=== PATIENT | male | born 1970 | race Caucasian/White ===

== ENCOUNTER 2018-04-29 21:49 | Emergency (ER) | payer MEDICARE, SELFPAY ==
[2018-04-29 21:51] VITALS: BP 160/95; PULSE 76; RESP 15; TEMP 36.9; O2SAT 100; BMI 35.6
--- NOTE | 2018-04-29 22:45 | CT_ITS ---
STUDY: CT ABDOMEN AND PELVIS WITHOUT CONTRAST REASON FOR EXAM: Male, 47 years old. LOW ABDOMEN PAIN,PAINFUL URINATION,ELEVATED BP HX:KIDNEY STONES RADIATION DOSAGE (If Supplied By Facility): CTDIvol = ( 19.85 ) mGy, DLP = ( 1111.15 ) mGycm TECHNIQUE: Transaxial images were obtained from the dome of the diaphragm to the symphysis pubis without oral contrast, and without intravenous contrast. Sagittal and coronal images were reconstructed. Individualized dose optimization techniques were used for this CT. COMPARISON: June 15, 2016 FINDINGS: The visualized lung bases are unremarkable. The visualized portions of the heart are within normal limits. There is decreased attenuation of the liver consistent with steatosis. Normal gallbladder and extrahepatic biliary system. Normal spleen. Normal pancreas. The liver is enlarged. This is consistent for Hepatomegaly. Liver is 23 cm in size. Normal bilateral adrenal glands. Normal right kidney. Nonobstructive inferior 4.7 mm stone of the left kidney. Moderate left hydronephrosis caused by left proximal 5 mm ureteral stone. Normal visualized stomach. Normal small intestine. Normal colon. The appendix is visualized and appears normal. Normal abdominal aorta. Normal inferior vena cava. Normal retroperitoneum. Normal urinary bladder. There are prostatic calcifications. There are bilateral inguinal hernias containing fat. There is no bowel involvement. There is no incarceration. There is no findings suggesting that this is causing a bowel obstruction. There is a small umbilical hernia containing fat. Normal osseous structures. CT/Abdomen/Pelvis without Cont IMPRESSION: Moderate left hydronephrosis caused by left proximal 5 mm ureteral stone. Fatty liver. Hepatomegaly Nonobstructive inferior 4.7 mm stone of the left kidney. Electronically Signed: Chico Hardy MD at 23:43 EDT , Service support ,
--- NOTE | 2018-04-29 22:49 | ED.DCSUM_ITS ---
- ER Visit Summary Date of Service: 04/29/18 Chief Complaint: Abdominal pain History of Present Illness: The patient is a 47 M presenting with abdominal pain. He states it started around 130pm today. He has a history of kidney stones and states this feels similar. Pain is in the suprapubic region. He denies back pain. He states he has had difficulty urinating today but has been able to urinate. He denies nausea or vomiting. Denies diarrhea. Denies fever. Denies other complaints. Physical Examination: Vitals are stable. Patient is afebrile. Alert no acute distress. HEENT exam is unremarkable. Neck is supple. Lungs are clear and equal bilaterally. Heart is regular rate and rhythm. Abdomen is soft suprapubic tenderness with no rebound or guarding Extremities are unremarkable. Skin is warm and dry. No focal neurologic deficit. Remainder of exam is unremarkable. Emergency Department Course and Treatment: Patient is given Toradol IV. CBC, chemistries unremarkable. Urinalysis shows 0-5 white blood cells, 5-[address] flank shows moderate left hydronephrosis caused by left proximal 5 mm ureteral stone. On reevaluation, patient states his pain is resolved. He is given a prescription for [place]. He is advised to follow-up with Dr. Villasenor. Advised return to ED for worsening complaints. Disposition: Discharge home Impression: Urolithiasis This note was generated with [employer] dictation software. It may contain incorrect words, spelling, and punctuation that were not noted in review of the chart prior to signing ED Disposition - Plan for ED Patient: Chief Complaint: Abd Pain Referrals: Yoan Ballard MD [Primary Care Provider] -
[2018-04-29 22:50] LABS: Bacteria 0 SEEN /hpf (None Seen); Mucous, Urine 0 SEEN /hpf (<or=2+); Squamous Epithelial Cells - UA 0 SEEN /hpf (0-5)
[2018-04-29] MEDS: Ketorolac 30 MG/ML Syringe IV (22:53)
[2018-04-29 23:01] LABS: Absolute Lymphocyte Count 1.78 X10^3/ul (0.83-4.51); Absolute Neutrophil Count 7.6 X10^3/uL (2.0-7.7); Basophil# 0.03 X10^3/uL; Basophil% 0.3 % (0-1); Eosinophil# 0.33 X10^3/uL; Eosinophils% 3.1 % (0-5); Hematocrit 42.4 % (40-54); Hemoglobin 14.5 g/dl (13.0-16.5); Lymphocyte # 1.78 X10^3/ul (4.0); Lymphocyte % 16.7 % (19-41); Mean Corp Hgb Conc 34.2 g/gl (32-36); Mean Corpuscular Hgb 29.5 pg (27.0-32.0); Mean Corpuscular Volume 86.4 fL (80-94); Mean Platelet Vol. 9.8 fl (6.2-12.0); Monocyte# 0.88 X10^3/uL; Monocyte% 8.3 % (0-10); Neutrophil # 7.62 X10^3/uL (2.7-7.7); Neutrophil % 71.4 % (47-70); Platelet Count 193 K/mm3 (150-450); RBC Distribution Width CV 13.6 % (11.6-14.6); RBC Distribution Width SD 42.9 fl (35.1-43.9); Red Blood Count 4.91 M/mm3 (4.6-6.2); White Blood Count 10.7 K/mm3 (4.4-11.0)
[2018-04-29 23:06] LABS: POSITIVE COUNT NO; POSITIVE DIFFERENTIAL NO; POSITIVE MORPHOLOGY NO
[2018-04-29 23:11] LABS: Color, Urine Yellow (Yellow); Glucose, Dipstick Normal (Normal); Ketone-Dipstick Negative (Negative); Leukocyte Esterase-Dipstick Negative /ul (Negative); Nitrite-Dipstick Negative (Negative); Occult Blood-Urine 250 /ul (Negative); Protein-Dipstick Negative (Negative); Urine Bilirubin Dipstick Negative (Negative); Urine Clarity Clear (Clear); Urine Urobilinogen Normal (Normal)
[2018-04-29 23:13] LABS: Red Blood Cells-Urine 5-10 SEEN /hpf (0-5); White Blood Cells 0-5 SEEN /hpf (0-5)
[2018-04-29 23:28] LABS: ALB/GLOB Ratio 1.1 RATIO (0.9-2.4); AST(SGOT) 26 U/L (15-37); Alanine Aminotransfer ALT/SGPT 44 U/L (16-61); Albumin, Serum 4.2 g/dL (3.2-5.0); Alkaline Phosphatase 77 U/L (45-117); Anion Gap 6 (5-15); BUN 15 mg/dL (7-18); BUN/Creat Ratio 12.5 RATIO (10-20); Chloride 104 mmol/L (98-107); EST Glomerular Filtration Rate 68 mL/min (>60); Est Glom Filt Rate - Afr Amer 83 mL/min (>60); Estimated Creatinine Clearance 80.18 ml/min; Globulin 3.8 g/dL (2.2-4.2); Glucose 97 mg/dL (74-106); Lipase 254 U/L (73-393); Potassium 3.9 mmol/L (3.5-5.1); Sodium Level 139 mmol/L (136-145)
--- NOTE | 2018-04-29 23:57 | ED.DEP ---
ED Disposition - Plan for ED Patient: Chief Complaint: Abd Pain Instructions: ED Stone Renal W Colic Prescriptions: Hydrocodone Bitart/Apap 5-325 [[place] 5MG-325MG] 1 tablet PO Q6H PRN PRN 3 Days #10 tablet PRN Reason: Pain Referrals: Yoan Ballard MD [Primary Care Provider] - Ozzie Villasenor MD [STAFF PHYSICIAN] -
--- NOTE | 2018-04-29 23:58 | DCINST.ED_ITS ---
ED Disposition - Plan for ED Patient: Chief Complaint: Abd Pain Instructions: ED Stone Renal W Colic Prescriptions: Hydrocodone Bitart/Apap 5-325 [[place] 5MG-325MG] 1 tablet PO Q6H PRN PRN 3 Days # 10 tablet PRN Reason: Pain Referrals: Yoan Ballard MD [Primary Care Provider] - Ozzie Villasenor MD [STAFF PHYSICIAN] -
[2018-04-30] MEDS: HYDROcodone Bitartrate/Apap 5/325 Tablet PO (00:09)
[2018-04-30 00:15] VITALS: BP 145/78; PULSE 75; RESP 19; O2SAT 99
== END 2018-04-30 00:17 | disposition home or self-care (01) ==
LOC: ED 23:59
PROVIDERS: Emergency Provider Emergency Medicine; Family Provider Family Medicine; PCP Family Medicine
DX: N13.2 Hydronephrosis with renal and ureteral calculous obstruction (principal); Z87.442 Personal history of urinary calculi
CPT/HCPCS: 74176; 80053; 81001; 83690; 85025; 96374; 99284; A4216

== ENCOUNTER 2018-05-02 21:02 | Emergency (ER) | payer MEDICARE, SELFPAY ==
[2018-05-02 21:03] VITALS: BP 183/100; PULSE 85; RESP 16; TEMP 37; O2SAT 95; BMI 36.2
[2018-05-02] MEDS: Morphine 4 MG/ML Syringe IV (21:50)
[2018-05-02] MEDS: 0.9% Normal Saline 1,000 ML 1000 ML IV (21:50)
[2018-05-02] MEDS: Ketorolac 30 MG/ML Syringe IV (21:51)
[2018-05-02] MEDS: Ondansetron 4 MG/2 ML Vial IV (21:51)
[2018-05-02 21:57] LABS: Absolute Lymphocyte Count 1.56 X10^3/ul (0.83-4.51); Absolute Neutrophil Count 8.7 X10^3/uL (2.0-7.7); Basophil# 0.02 X10^3/uL; Basophil% 0.2 % (0-1); Eosinophils% 1.7 % (0-5); Hematocrit 40.1 % (40-54); Hemoglobin 13.6 g/dl (13.0-16.5); Lymphocyte # 1.56 X10^3/ul (4.0); Lymphocyte % 13.3 % (19-41); Mean Corp Hgb Conc 33.9 g/gl (32-36); Mean Corpuscular Hgb 29.2 pg (27.0-32.0); Mean Corpuscular Volume 86.2 fL (80-94); Monocyte# 1.26 X10^3/uL; Monocyte% 10.7 % (0-10); Neutrophil # 8.68 X10^3/uL (2.7-7.7); Neutrophil % 73.9 % (47-70); Platelet Count 188 K/mm3 (150-450); RBC Distribution Width CV 13.4 % (11.6-14.6); RBC Distribution Width SD 42.1 fl (35.1-43.9); Red Blood Count 4.65 M/mm3 (4.6-6.2); White Blood Count 11.7 K/mm3 (4.4-11.0)
[2018-05-02 21:58] LABS: POSITIVE COUNT NO; POSITIVE DIFFERENTIAL NO; POSITIVE MORPHOLOGY NO
[2018-05-02 22:05] VITALS: BP 155/78; PULSE 91; RESP 17; O2SAT 95
[2018-05-02 22:10] LABS: Anion Gap 7 (5-15); BUN 16 mg/dL (7-18); BUN/Creat Ratio 8.9 RATIO (10-20); Calcium,Total 8.9 mg/dL (8.5-10.1); Chloride 102 mmol/L (98-107); EST Glomerular Filtration Rate 43 mL/min (>60); Est Glom Filt Rate - Afr Amer 52 mL/min (>60); Estimated Creatinine Clearance 53.45 ml/min; Glucose 101 mg/dL (74-106); Potassium 4.7 mmol/L (3.5-5.1); Sodium Level 132 mmol/L (136-145)
[2018-05-02 22:33] LABS: Bacteria 0 SEEN /hpf (None Seen); Mucous, Urine 0 SEEN /hpf (<or=2+); Red Blood Cells-Urine 0 SEEN /hpf (0-5); Squamous Epithelial Cells - UA 0 SEEN /hpf (0-5)
[2018-05-02 22:44] LABS: Color, Urine Yellow (Yellow); Glucose, Dipstick Normal (Normal); Ketone-Dipstick Negative (Negative); Leukocyte Esterase-Dipstick 25 /ul (Negative); Nitrite-Dipstick Negative (Negative); Occult Blood-Urine Negative /ul (Negative); Protein-Dipstick Negative (Negative); Urine Bilirubin Dipstick Negative (Negative); Urine Clarity Clear (Clear); Urine Urobilinogen Normal (Normal)
[2018-05-02 22:50] LABS: White Blood Cells 0-5 SEEN /hpf (0-5)
--- NOTE | 2018-05-02 23:20 | RAD_ITS ---
STUDY: X-RAY - ABDOMEN/PELVIS REASON FOR EXAM: Male, 47 years old. Kidney stone TECHNIQUE: Two AP supine views of the abdomen and pelvis. COMPARISON: CT abdomen and pelvis 04/29/2018 FINDINGS: The previously seen left inferior renal pole calculus and left proximal ureteral calculus are not sufficiently visualized in the expected location of the left kidney and proximal ureter. There is however 0.58 cm round density possible calcification/calculus at the level of L3 vertebral body which appears likely lateral to the expected location of the ureter. The kidneys are obscured. There is air distention of small bowel and colon. There is no demonstrated free abdominal air. Stable hepatomegaly. Normal soft tissue structures. Normal visualized osseous structures. RAD/Abdomen Single View IMPRESSION: Limited visualization of the kidneys. There is a calcification at the expected level of the previously seen calculus but more laterally than the expected ureter course. This still may represent the calculus without significant change in the ureter. The left inferior renal pole calculus on CT is obscured. Both kidneys are obscured. Probable intestinal ileus without obstruction. Electronically Signed: Velia Arevalo MD at 23:43 EDT , Service support ,
--- NOTE | 2018-05-02 23:37 | ED.VISSUMM ---
- ER Visit Summary Date of Service: 05/02/18 Chief Complaint: Abdominal pain History of Present Illness: The patient is a 47 M who presents with abdominal pain. It initially began 4 days ago. He was seen in the emergency department at that time and diagnosed with a kidney stone. He had a 5 mm proximal left ureteral calculus. He was discharged with hydrocodone. He states this was controlling his symptoms well until tonight. He last took a dose at about 2 PM. He states that his pain has become worse the last couple of hours. He reports nausea without vomiting. He reports urinary urgency but no dysuria frequency or hematuria. No diarrhea. No fever. Physical Examination: Afebrile vitals notable for blood pressure 183/100 otherwise normal Moist mucous membranes Patient in no apparent distress Heart regular rate and rhythm Lungs clear Abdomen soft nondistended he does have some bilateral lower abdominal tenderness no guarding no rebound No CVA tenderness Test Results: Labs notable for white blood cell count 11.7. Creatinine 1.8 which is increased from recent labs. Urinalysis does not show evidence of infection. On KUB I am unable to appreciate any obvious ureteral calculus. Emergency Department Course and Treatment: Patient was treated here with IV fluids Toradol morphine Zofran. He feels better on reevaluation. We discussed hospital admission. The patient does not want to be admitted. He will prefer to follow-up with urology as an outpatient. I do not believe this is unreasonable. He does understand return for new or worsening symptoms was instructed on specific signs and symptoms to monitor for. He was discharged home. Treatment Plan: [] Disposition: Discharge Impression: Ureteral calculus This note was generated with [employer] dictation software. It may contain incorrect words, spelling, and punctuation that were not noted in review of the chart prior to signing ED Disposition - Plan for ED Patient: Chief Complaint: Flank Pain Referrals: Yoan Ballard MD [Primary Care Provider] -
--- NOTE | 2018-05-02 23:44 | ED.DEP ---
ED Disposition - Plan for ED Patient: Chief Complaint: Flank Pain Instructions: ED Stone Renal W Colic Referrals: Yoan Ballard MD [Primary Care Provider] - Ozzie Villasenor MD [STAFF PHYSICIAN] -
[2018-05-02 23:50] VITALS: BP 148/82; PULSE 82; RESP 17; O2SAT 95
== END 2018-05-02 23:51 | disposition home or self-care (01) ==
LOC: ED 21:45
PROVIDERS: Emergency Provider Emergency Medicine; Family Provider Family Medicine; PCP Family Medicine
DX: N20.1 Calculus of ureter (principal)
CPT/HCPCS: 74018; 80048; 81001; 85025; 96361; 96374; 96375; 99285; J7030; A4216; J2405

== ENCOUNTER 2018-05-07 01:53 | Emergency (ER) | payer MEDICARE, SELFPAY ==
[2018-05-07 01:54] VITALS: BP 143/97; PULSE 75; RESP 18; TEMP 37; O2SAT 96; BMI 36.5
--- NOTE | 2018-05-07 02:36 | ED.DCSUM_ITS ---
- ER Visit Summary Date of Service: 05/07/18 Chief Complaint: Right knee swelling History of Present Illness: The patient is a 47 M nontraumatic right knee swelling for the past week. History of gout with similar flares. No fevers. Cannot get into his PCP for a week. Prescription for etodolac 400 mg twice daily for which he is out of. Requests drainage to relieve swelling. Physical Examination: General: Alert and oriented ?3, no acute distress HEENT: Normocephalic, atraumatic. Moist mucosa membranes Neck: supple, nontender. Cardiovascular: Regular rate and rhythm, no murmurs Respiratory: Normal breath sounds, symmetric, no distress Abdomen: Soft, nontender, nondistended Extremities: Nontender, pulses intact ?4. Right lower extremity: Suprapatellar swelling right knee. No erythema. Negative varus and valgus. Neuro: no focal neurological deficits. Test Results: [] Emergency Department Course and Treatment: Patient nontoxic, no clinical signs of septic joint. Patient requested drainage of effusion to help with swelling. Written consent obtained. Timeout performed. Lateral approach performed sterile conditions after preparation. Joint was accessed, however there is no fluid obtainable. Was able to inject 1 cc of 1% lidocaine into the joint to help with comfort. Cr wrap was provided. Case patient continue follow-up with his PCP. He was refill his prescription of etodolac. Motrin was given the ED. Treatment Plan: [] Disposition: Discharge Impression: Right knee effusion This note was generated with [employer] dictation software. It may contain incorrect words, spelling, and punctuation that were not noted in review of the chart prior to signing ED Disposition - Plan for ED Patient: Disposition: Home or Assisted Living Chief Complaint: Lower Extremity Injury Diagnosis: Swelling of right knee joint Instructions: Reducing Knee Pain and Swelling Prescriptions: Etodolac 400 mg PO BID PRN #60 tablet PRN Reason: Pain Referrals: Yoan Ballard MD [Primary Care Provider] - 3-5 Days
[2018-05-07] MEDS: Ibuprofen 600 MG Tablet PO (02:44)
[2018-05-07 04:14] VITALS: RESP 16
== END 2018-05-07 04:15 | disposition home or self-care (01) ==
PROVIDERS: Emergency Provider Emergency Medicine; Family Provider Family Medicine; PCP Family Medicine
DX: M25.461 Effusion, right knee (principal); M10.9 Gout, unspecified
CPT/HCPCS: 20610; 99283

== ENCOUNTER 2018-07-24 02:05 | Emergency (ER) | payer MEDICARE, SELFPAY ==
[2018-07-24 02:08] VITALS: BP 133/85; PULSE 86; RESP 16; TEMP 36.5; O2SAT 98; BMI 36.3
--- NOTE | 2018-07-24 02:23 | ED.VISSUMM ---
- ER Visit Summary Date of Service: 07/24/18 History of Present Illness: The patient is a 48 M for the last 3 days the patient had a flare of right knee aching and swelling. Has had this multiple times in the past. He thinks it might be gout. He has received injections in the knee which usually helps. He took some leftover hydrocodone which helped. He saw his family doctor recently and was given etodolac but it said does not seem to be helping on his own. He saw Sohail Broussard in the past for this but no definitive diagnosis. He had a effusion tapped last winter that showed no evidence of infection. This is similar to that. He was also seen and received an injection in his knee or the summer and it went away. Physical Examination: [] Vital signs reviewed General: Well-nourished well-developed Head: Normocephalic atraumatic Eyes: Pupils equal round and reactive to light extraocular movements intact ENT: TMs clear no hemotympanum no trauma Neck: Nontender full range of motion Cardiovascular: Regular rate rhythm no murmurs normal S1-S2 Respiratory: No distress clear to auscultation bilaterally chest nontender Abdomen: Soft nontender nondistended normal bowel sounds no masses Back: Nontender no CVA tenderness Extremities: The patient has a knee effusion with tenderness and warmth. No redness. Mild decreased range of motion secondary to pain. Skin: Normal color no trauma Neuro alert oriented cranial nerves II through XII intact normal strength sensation reflexes Test Results: [] Emergency Department Course and Treatment: [] It appears the patient has a recurrence of his knee effusion probably gout. He is Elvis on NSAID. He asked if I could inject it. Will be injected with Kenalog and lidocaine combination. His joint was washed with chlorhexidine and an injection was done without complication. Sterile technique done. Cr wrap was applied. He was given a hydrocodone and will continue short course of hydrocodone. He will follow-up as an outpatient. I do not feel he has a septic knee Treatment Plan: [] Disposition: [] Impression: [] Right knee effusion recurrent suspected gout This note was generated with [employer] dictation software. It may contain incorrect words, spelling, and punctuation that were not noted in review of the chart prior to signing ED Disposition - Plan for ED Patient: Disposition: Home or Assisted Living Chief Complaint: Lower Extremity Injury Instructions: ED Effusion Knee Prescriptions: Hydrocodone Bitart/Apap 5-325 [[place] 5MG-325MG] 1 - 2 tab PO Q6H PRN PRN 3 Days #10 tab PRN Reason: Pain Referrals: Brian Guidry MD [STAFF PHYSICIAN] - oYan Ballard MD [Primary Care Provider] -
--- NOTE | 2018-07-24 02:26 | ED.DCSUM_ITS ---
- ER Visit Summary Date of Service: 07/24/18 History of Present Illness: The patient is a 48 M for the last 3 days the patient had a flare of right knee aching and swelling. Has had this multiple times in the past. He thinks it might be gout. He has received injections in the knee which usually helps. He took some leftover hydrocodone which helped. He saw his family doctor recently and was given etodolac but it said does not seem to be helping on his own. He saw Sohail Broussard in the past for this but no definitive diagnosis. He had a effusion tapped last winter that showed no evidence of infection. This is similar to that. He was also seen and received an injection in his knee or the summer and it went away. Physical Examination: [] Vital signs reviewed General: Well-nourished well-developed Head: Normocephalic atraumatic Eyes: Pupils equal round and reactive to light extraocular movements intact ENT: TMs clear no hemotympanum no trauma Neck: Nontender full range of motion Cardiovascular: Regular rate rhythm no murmurs normal S1-S2 Respiratory: No distress clear to auscultation bilaterally chest nontender Abdomen: Soft nontender nondistended normal bowel sounds no masses Back: Nontender no CVA tenderness Extremities: The patient has a knee effusion with tenderness and warmth. No redness. Mild decreased range of motion secondary to pain. Skin: Normal color no trauma Neuro alert oriented cranial nerves II through XII intact normal strength sensation reflexes Test Results: [] Emergency Department Course and Treatment: [] It appears the patient has a recurrence of his knee effusion probably gout. He is Elvis on NSAID. He asked if I could inject it. Will be injected with Kenalog and lidocaine combination. His joint was washed with chlorhexidine and an injection was done without complication. Sterile technique done. Cr wrap was applied. He was given a hydrocodone and will continue short course of hydrocodone. He will follow-up as an outpatient. I do not feel he has a septic knee Treatment Plan: [] Disposition: [] Impression: [] Right knee effusion recurrent suspected gout This note was generated with [employer] dictation software. It may contain incorrect words, spelling, and punctuation that were not noted in review of the chart prior to signing ED Disposition - Plan for ED Patient: Disposition: Home or Assisted Living Chief Complaint: Lower Extremity Injury Instructions: ED Effusion Knee Prescriptions: Hydrocodone Bitart/Apap 5-325 [[place] 5MG-325MG] 1 - 2 tab PO Q6H PRN PRN 3 Days #10 tab PRN Reason: Pain Referrals: Brian Guidry MD [STAFF PHYSICIAN] - Yoan Ballard MD [Primary Care Provider] -
[2018-07-24] MEDS: HYDROcodone Bitartrate/Apap 5/325 Tablet PO (02:28)
--- NOTE | 2018-07-24 02:28 | DCINST.ED_ITS ---
ED Disposition - Plan for ED Patient: Disposition: Home or Assisted Living Chief Complaint: Lower Extremity Injury Instructions: ED Effusion Knee Prescriptions: Hydrocodone Bitart/Apap 5-325 [[place] 5MG-325MG] 1 - 2 tab PO Q6H PRN PRN 3 Days #10 tab PRN Reason: Pain Referrals: Yoan Ballard MD [Primary Care Provider] - Brian Guidry MD [STAFF PHYSICIAN] -
[2018-07-24] MEDS: Triamcinolone Acetonide 40 MG/ML Vial IU (02:44)
[2018-07-24 02:55] VITALS: RESP 16
== END 2018-07-24 02:55 | disposition home or self-care (01) ==
PROVIDERS: Emergency Provider Emergency Medicine; Family Provider Family Medicine; PCP Family Medicine
DX: M25.461 Effusion, right knee (principal); Z79.899 Other long term (current) drug therapy
CPT/HCPCS: 20610; 99282

== ENCOUNTER 2018-08-03 02:01 | Emergency (ER) | payer MEDICARE, SELFPAY ==
[2018-08-03 02:02] VITALS: BP 131/89; PULSE 63; RESP 20; TEMP 36.6; O2SAT 99; BMI 36.3
--- NOTE | 2018-08-03 02:16 | RAD_ITS ---
STUDY: X-RAY - RIGHT KNEE REASON FOR EXAM: Male, 48 years old. Knee pain. TECHNIQUE: 4 view(s) of the knee. COMPARISON: None. FINDINGS: Normal visualized distal femur. Normal visualized proximal tibia and fibula. Normal proximal tibiofibular articulation. There is mild degenerative arthrosis of the medial femorotibial compartment. Normal lateral femorotibial compartment. There is mild degenerative arthrosis of the patellofemoral articulation. There is a moderate volume joint effusion. The soft tissue structures are unremarkable. RAD/Knee 4 or More Views IMPRESSION: Degenerative arthrosis. Electronically Signed: Ricki Keys MD at 3:40 EDT Tel , Service support ,
--- NOTE | 2018-08-03 03:48 | ED.DCSUM_ITS ---
- ER Visit Summary Date of Service: 08/03/18 Chief Complaint: Right knee pain History of Present Illness: The patient is a 48 M who presents with right knee pain. This has been a chronic recurrent issue for him. He has previously had steroid injections. He also has a history of gout. He was seen here 10 days ago and had a steroid injection. He did have some temporary relief. He has also seen his primary care physician and had an orthopedic referral. He is scheduled to see them on August 11. He denies any fall trauma or injury. His pain is worse with ambulation. Physical Examination: Afebrile vitals are stable Heart regular rate and rhythm Lungs clear Abdomen soft Patient does have active full range of motion right knee there is some mild soft tissue swelling there is no appreciable effusion it is not erythematous or hot to the touch Test Results: Right knee x-ray shows degenerative changes Emergency Department Course and Treatment: Patient was given an Cr wrap and he will be given a prescription for short course of [place] for acute pain control until he can follow-up with orthopedics for further evaluation. Treatment Plan: [] Disposition: Discharge Impression: Right knee pain This note was generated with [employer] dictation software. It may contain incorrect words, spelling, and punctuation that were not noted in review of the chart prior to signing ED Disposition - Plan for ED Patient: Chief Complaint: Lower Extremity Injury Referrals: Yoan Ballard MD [Primary Care Provider] -
--- NOTE | 2018-08-03 03:48 | ED.DEP ---
ED Disposition - Plan for ED Patient: Chief Complaint: Lower Extremity Injury Instructions: ED Knee Pain UKO Prescriptions: Hydrocodone Bitart/Apap 5-325 [[place] 5MG-325MG] 1 tab PO Q6H PRN PRN 3 Days #12 tab PRN Reason: Pain Referrals: Yoan Ballard MD [Primary Care Provider] -
[2018-08-03 04:02] VITALS: BP 132/90; PULSE 63; RESP 16; O2SAT 98
[2018-08-03] MEDS: HYDROcodone Bitartrate/Apap 5/325 Tablet PO (04:09)
== END 2018-08-03 04:12 | disposition home or self-care (01) ==
LOC: ED 02:13
PROVIDERS: Emergency Provider Emergency Medicine; Family Provider Family Medicine; PCP Family Medicine
DX: M25.561 Pain in right knee (principal); M10.9 Gout, unspecified; Z79.1 Long term (current) use of non-steroidal anti-inflammatories (NSAID)
CPT/HCPCS: 73564; 99282

== ENCOUNTER 2019-05-06 02:10 | Emergency (ER) | payer MEDICARE, SELFPAY ==
[2019-05-06 02:12] VITALS: BP 150/98; PULSE 68; RESP 16; TEMP 37; O2SAT 96; BMI 37.0
--- NOTE | 2019-05-06 02:24 | ED.VIS.GEN ---
History of Present Illness Chief Complaint: Other, Pain/Inj Informant: Patient Narrative: Stated he lifting something heavy approximately 4 hours ago while helping someone move. It was a bed mattress. He felt some pain in his left elbow is noted some swelling in his bursa sac. He also has some soreness in his right lower back. He uses allopurinol daily for gout. No fevers or chills. No other symptoms. Symptoms are worsened by movement. Current severity is mild to moderate. Past Medical History - Allergies and Home Meds Allergies/Adverse Reactions: Allergies No Known Allergies Allergy (Verified 05/06/19 02:16) Primary Care Physician: Yoan Ballard MD [Primary Care Provider] - Prior records reviewed: Yes Past Medical History: - - Gout Surgical History: noncontributory Smoking Status: Never smoker Alcohol: None Drugs: None Review of Systems General: Denies: Chills, Fever, Sweats Eyes: Denies: Visual changes - bilaterally, Diplopia ENT: Denies: Rhinorrhea, Sore throat Cardiovascular: Denies: Chest pain, Palpitations Respiratory: Denies: Dyspnea, Cough, Dyspnea on exertion Gastrointestinal: Denies: Abdominal pain, Nausea, Vomiting, Diarrhea, Melena, Hematochezia Genitourinary: Denies: Dysuria, Hematuria, Frequency Musculoskeletal: Reports: Back pain, Extremity Pain Skin: Denies: Rash, Wounds Neurological: Denies: Headache, Weakness, Numbness Physical Exam Vital Signs/Narrative: Vital Signs Temp Pulse Resp BP Pulse Ox 05/06/19 02:12 98.6 F 68 16 150/98 H 96 General: Well nourished, Well developed, No Acute Distress Head: Normocephalic, Atraumatic Eyes: Perrl, EOMI ENT: Moist mucous membranes, No rhinorrhea Neck: Supple, Nontender Cardiovascular: Regular rate, Regular rhythm, No murmurs Respiratory: No distress, CTA bilaterally, Chest nontender Abdomen: Soft, Nontender, Nondistended, Normal bowel sounds Back: Normal Inspection, - - Tenderness right lower lumbar paraspinals with mild decreased range of motion secondary to pain. Negative for: Nontender Extremities: Tenderness - Right posterior olecranon. Mild bursitis swelling noted. No significant redness or warmth.. Negative for: Nontender, No edema Skin: Normal color, No rash Neurological: Alert, Oriented x3, Cranial nerves II-XII grossly intact, Normal Strength, Normal Sensation Psychological: Normal affect, Normal Mood Diagnostic/Tx/Re-eval - Medical Decision Making This time I feel the patient has a back strain on his right lower back. Will be given meloxicam for home. He will use this at home and rest and ice. His left elbow has a mild bursitis. This was injected with 80 mg of Kenalog. This was done under sterile technique. Wound was washed with chlorhexidine. A 21-gauge needle was instilled to the bursa with a steroid. Cr wrap was placed. He will follow-up as an outpatient. No complications noted. ED Disposition - Plan for ED Patient: Disposition: [facility] Unit Diagnosis: Traumatic bursitis, Low back strain Instructions: What Is Bursitis?, BACK PAIN (Acute or Chronic) Prescriptions: Meloxicam 15 mg PO DAILY #14 tab Prescription Printed Referrals: Yoan Ballard MD [Primary Care Provider] -
[2019-05-06] MEDS: Ibuprofen 600 MG Tablet PO (02:40)
[2019-05-06] MEDS: Triamcinolone Acetonide 40 MG/ML Vial 80 MG IU (02:40)
== END 2019-05-06 02:43 | disposition home or self-care (01) ==
LOC: ED 02:32
PROVIDERS: Emergency Provider Emergency Medicine; Family Provider Family Medicine; PCP Family Medicine
DX: M70.88 Other soft tissue disorders related to use, overuse and pressure other site (principal); S39.012A Strain of muscle, fascia and tendon of lower back, initial encounter; M10.9 Gout, unspecified; Z79.899 Other long term (current) drug therapy; X50.0XXA Overexertion from strenuous movement or load, initial encounter; Y93.89 Activity, other specified; Y92.009 Unspecified place in unspecified non-institutional (private) residence as the place of occurrence of the external cause; Y99.8 Other external cause status
CPT/HCPCS: 20605; 20610; 99283

== ENCOUNTER 2019-05-25 06:58 | Emergency (ER) | payer MEDICARE, SELFPAY ==
[2019-05-25 06:58] VITALS: BP 136/91; PULSE 71; RESP 16; TEMP 36.6; O2SAT 97; BMI 35.5
--- NOTE | 2019-05-25 07:12 | RAD_ITS ---
STUDY: X-RAY - LEFT ELBOW REASON FOR EXAM: Male, 49 years old. Injury due to lifting. TECHNIQUE: 3 view(s) of the elbow. COMPARISON: None. FINDINGS: Normal visualized humerus, radius and ulna. There is degenerative arthrosis of the radiocapitellar and ulnotrochlear articulations. Tiny linear metallic density is seen in the soft tissues overlying the medial epicondyle of the distal humerus posteriorly. Posterior soft tissue swelling. RAD/Elbow min 3 Views IMPRESSION: Mild degenerative changes. Soft tissue swelling. Tiny metallic foreign body seen in the soft tissues overlying the posterior medial epicondyle of the distal humerus. Electronically Signed: Cory Tracey, at 7:55 EDT , Service support ,
--- NOTE | 2019-05-25 07:14 | ED.VIS.GEN ---
History of Present Illness Chief Complaint: Upper Extremity Injury Informant: Patient Onset: Weeks - 3 Context: Onset with activity Current Severity: Moderate Narrative: Patient presents with left elbow pain that started 3 weeks ago. He was seen in the emergency department he was given an intrabursal [place]al[place] injection and had significant improvement, however his pain is back today. He has no fever chills cough congestion he tells me that the pain is medial on his left elbow worse with extension. He has no new injury. He has no fever chills or rash. Pain is achy mild to moderate. Past Medical History - Allergies and Home Meds Allergies/Adverse Reactions: Allergies No Known Allergies Allergy (Verified 05/25/19 07:00) Primary Care Physician: John Jenkins DO [STAFF PHYSICIAN] - Past Medical History: - - Hearing and speech impediment, otherwise relatively healthy male Surgical History: noncontributory Smoking Status: Never smoker Review of Systems General: Denies: Fever Cardiovascular: Denies: Chest pain Respiratory: Reports: Dyspnea Musculoskeletal: Reports: Arthralgias Skin: Denies: Rash Neurological: Denies: Weakness, Parasthesia Hematologic: Denies: Easy bruising Physical Exam Vital Signs/Narrative: Vital Signs Temp Pulse Resp BP Pulse Ox 05/25/19 06:58 97.8 F 71 16 136/91 H 97 General: Well nourished, Well developed Neck: Nontender Cardiovascular: Regular rate Respiratory: No distress Extremities: - - There is medial elbow tenderness mostly in the medial epicondyle region. There is no olecranon bursitis at this time. There is no erythema or calor. No signs of infection there is pain with pronation supination flexion and extension. Skin: Normal color, No rash Neurological: Normal Strength, Normal Sensation Diagnostic/Tx/Re-eval - Medical Decision Making X-ray elbow was done this is unremarkable except for a very small metallic foreign body this could or could not cause his pain, at this time there is no signs of infection. I will place the patient on analgesics, I will refer to orthopedics for further follow-up and treatment. ED Disposition - Plan for ED Patient: Disposition: Home or Assisted Living Diagnosis: Sprain of elbow, left Instructions: Sprain Elbow Prescriptions: Hydrocodone Bitart/Apap 5-325 [[place] 5MG-325MG] 1 tab PO Q4H PRN PRN 2 Days #10 tab PRN Reason: Pain Prescription Printed Referrals: John Jenkins DO [STAFF PHYSICIAN] - Additional Instructions: There is a very small foreign body in the elbow. Follow-up with orthopedics to make sure that that is not what is causing your pain.
== END 2019-05-25 08:13 | disposition home or self-care (01) ==
PROVIDERS: Emergency Provider Emergency Medicine; Family Provider Family Medicine; PCP Family Medicine
DX: S53.4 Sprain of elbow (principal); X58.XXXD Exposure to other specified factors, subsequent encounter
CPT/HCPCS: 73080; 99282

== ENCOUNTER 2019-06-25 03:35 | Emergency (ER) | payer MEDICARE, SELFPAY ==
[2019-06-25 03:36] VITALS: BP 129/85; PULSE 62; RESP 16; TEMP 36.8; O2SAT 98; BMI 35.6
--- NOTE | 2019-06-25 03:46 | ED.DCSUM_ITS ---
History of Present Illness Chief Complaint: Lower Extremity Injury Narrative: Patient is a 49-year-old male who presents with right knee and ankle pain. This is been going on for 4 weeks. He does have a history of prior similar symptoms and gout. He is on allopurinol. His primary care physician recently increased the dose but he continues to have symptoms. No fevers nausea vomiting. No history of any trauma or injury. Past Medical History - Allergies and Home Meds Allergies/Adverse Reactions: Allergies No Known Allergies Allergy (Verified 06/25/19 03:36) Primary Care Physician: Yoan Ballard MD [Primary Care Provider] - Past Medical History: - - Gout Surgical History: noncontributory Smoking Status: Never smoker Review of Systems All systems negative except as indicated Physical Exam Vital Signs/Narrative: Vital Signs Temp Pulse Resp BP Pulse Ox 06/25/19 03:36 98.3 F 62 16 129/85 H 98 General: Well nourished Head: Normocephalic Eyes: EOMI ENT: Moist mucous membranes Cardiovascular: Regular rate Respiratory: No distress Extremities: - - Right knee effusion but active full range of motion no pain with short arc range of motion it is not erythematous or hot to the touch active full range of motion of the right ankle as well normal sensation to light touch brisk capillary refill Skin: Normal color Neurological: Alert Psychological: Normal affect Diagnostic/Tx/Re-eval - Medical Decision Making Patient was given a [place] here and will also be started on prednisone. He was given prescriptions for the same. He was advised to follow-up with his primary care physician and was discharged home. ED Disposition - Plan for ED Patient: Disposition: Home or Assisted Living Diagnosis: Gout Instructions: What Is Gout? Prescriptions: Hydrocodone Bitart/Apap 5-325 [[place] 5MG-325MG] 1 tab PO Q6H PRN PRN 3 Days #10 tab PRN Reason: Pain Prescription Printed predniSONE tablet 60 mg PO DAILY #12 tab Prescription Printed Referrals: Yoan Ballard MD [Primary Care Provider] -
[2019-06-25] MEDS: HYDROcodone Bitartrate/Apap 5/325 Tablet PO (03:50)
[2019-06-25] MEDS: predniSONE 20 MG Tablet 60 MG PO (03:51)
== END 2019-06-25 04:19 | disposition home or self-care (01) ==
LOC: ED 03:56
PROVIDERS: Emergency Provider Emergency Medicine; Family Provider Family Medicine; PCP Family Medicine
DX: M10.9 Gout, unspecified (principal); Z79.899 Other long term (current) drug therapy
CPT/HCPCS: 99283

== ENCOUNTER 2020-06-05 03:33 | Emergency (ER) | payer MEDICARE, SELFPAY ==
[2020-06-05 03:34] VITALS: BP 117/76; PULSE 67; RESP 18; TEMP 36.3; O2SAT 97; BMI 36.3
--- NOTE | 2020-06-05 04:34 | ED.VIS.GEN ---
History of Present Illness Chief Complaint: Edema Informant: Patient Onset: Days Context: Gradual Onset Timing: Continuous Narrative: Patient is a 50-year-old male with history of deafness and gout presenting with a gouty flare. Patient states he ate shrimp 3 days ago which seemed to exacerbate his gout symptoms. He is having pain, redness and warmth of his left foot and his left elbow. He is on allopurinol is continued to take it. He states he had blood work with his primary care doctor earlier this week and it was normal. He denies any history of diabetes. He states he could not sleep because of the pain which is why he came to the emergency room. Denies any other complaints at this time. Denies any trauma or injury. Prior similar symptoms: Yes - gout Past Medical History - Allergies and Home Meds Allergies/Adverse Reactions: Allergies No Known Allergies Allergy (Verified 06/05/20 03:41) Primary Care Physician: Yoan Ballard MD [Primary Care Provider] - Past Medical History: - - Gout Surgical History: noncontributory Smoking Status: Never smoker Review of Systems General: Denies: Chills, Fever, Sweats Eyes: Denies: Visual changes - bilaterally, Diplopia ENT: Denies: Rhinorrhea, Sore throat Cardiovascular: Denies: Chest pain, Palpitations Respiratory: Denies: Dyspnea, Cough, Dyspnea on exertion Gastrointestinal: Denies: Abdominal pain, Nausea, Vomiting, Diarrhea, Melena, Hematochezia Genitourinary: Denies: Dysuria, Hematuria, Frequency Musculoskeletal: Reports: Swelling, Extremity Pain. Denies: Back pain Skin: Denies: Rash, Wounds Neurological: Denies: Headache, Weakness, Numbness Physical Exam Vital Signs/Narrative: Vital Signs Temp Pulse Resp BP Pulse Ox 06/05/20 03:34 97.3 F L 67 18 117/76 97 Inital Vital Signs reviewed: Yes General: Well nourished, Well developed, No Acute Distress Head: Normocephalic, Atraumatic Eyes: Perrl, EOMI ENT: Moist mucous membranes, No rhinorrhea Neck: Supple, Nontender Cardiovascular: Regular rate, Regular rhythm, No murmurs Respiratory: No distress, CTA bilaterally, Chest nontender Abdomen: Soft, Nontender, Nondistended, Normal bowel sounds Back: Nontender, Normal Inspection Extremities: - - Normal range of motion of the joints throughout. No obvious deformity. Mild warmth and tenderness palpation of the left elbow. No obvious bursitis on exam. No obvious joint effusion present. Normal left ankle. On the left foot patient has erythema and warmth over the lateral midfoot with tenderness palpation some mild edema. No lymphangitic streaking present. Normal metatarsal phalangeal joints.. Negative for: Calf Tenderness Skin: No rash, - - Erythema over the left lateral foot, no cellulitic changes or findings consistent with an abscess Neurological: Alert, Oriented x3, Cranial nerves II-XII grossly intact, Normal Strength, Normal Sensation Psychological: Normal affect, Normal Mood Diagnostic/Tx/Re-eval - Medical Decision Making Patient is evaluated for acute gouty flare. He appears nontoxic in no acute distress. This is consistent with his prior gouty flares. He will be treated with 1.2 mg of colchicine in the ER, prednisone and prescription for [place] as the patient drove here. He also take Motrin as needed at home. He will be given a burst of steroids. He will follow-up with his primary care doctor later this week as needed. He is given return precautions. At this time I do not think patient has a septic joint or an acute infection. I do not think imaging or blood work is indicated. ED Disposition - Plan for ED Patient: Disposition: Home or Assisted Living Diagnosis: Gout flare, Left elbow pain, Left foot pain Instructions: ED ARTHRITIS Gout Prescriptions: Prednisone [Deltasone] 40 mg PO DAILY #8 tab Prescription Printed Hydrocodone Bitart/Apap 5-325 [[place] 5MG-325MG] 1 tab PO Q6H PRN PRN 3 Days #12 tab PRN Reason: Pain Prescription Printed Referrals: Yoan Ballard MD [Primary Care Provider] - Additional Instructions: Please follow-up with your primary care doctor later this week or early next week for recheck. Return with any worsening symptoms especially if you develop a fever.
[2020-06-05] MEDS: predniSONE 20 MG Tablet 60 MG PO (04:46)
[2020-06-05 04:56] VITALS: PULSE 72; RESP 18
== END 2020-06-05 04:57 | disposition home or self-care (01) ==
PROVIDERS: Emergency Provider Emergency Medicine; PCP Family Medicine
DX: M10.9 Gout, unspecified (principal); M79.672 Pain in left foot; M25.522 Pain in left elbow
CPT/HCPCS: 99282

== ENCOUNTER 2020-08-26 12:44 | Observation (INO) | payer MEDICARE, SELFPAY ==
[2020-08-26] VITALS (11 sets, daily range): BP systolic 111–138; BP diastolic 69–92; PULSE 55–73; RESP 12–18; TEMP 36.2–37.1; O2SAT 96–98; BMI 35.7; BMI 35.5
--- NOTE | 2020-08-26 13:02 | RAD_ITS ---
STUDY: X-RAY CHEST REASON FOR EXAM: Male, 50 years old. Chest pain x3 days. TECHNIQUE: Single AP portable view of the chest. COMPARISON: None. FINDINGS: EKG electrodes are seen. The lungs are clear and expanded. There is no demonstrated pleural abnormality. Normal size heart. Normal mediastinum and satish. Normal visualized pulmonary arteries. There is atherosclerotic tortuosity of the aortic arch and descending thoracic aorta. There are diffuse degenerative changes of the visualized thoracic spine. Normal visualized ribs, clavicles, and shoulders. There is no demonstrated abnormality of the visualized soft tissue structures of the upper abdomen. RAD/Chest 1 View (Portable) IMPRESSION: No acute abnormality is seen. Electronically Signed: Cory Tracey, at 13:25 EST , Service support ,
--- NOTE | 2020-08-26 13:02 | EKG12_ITS ---
Test Reason : CP Blood Pressure : / mmHG Vent. Rate : 067 BPM Atrial Rate : 067 BPM P-R Int : 170 ms QRS Dur : 088 ms QT Int : 392 ms P-R-T Axes : 025 -05 025 degrees QTc Int : 414 ms Sinus rhythm with occasional Premature ventricular complexes Otherwise normal ECG Confirmed by IRINA DECKER, KRISTINE ([id number]), commissioning editor RAMONITA GARCIA ([id number]) on 08/27/2020 1:05:40 PM Referred By: THOM Confirmed By:KRISTINE AREVALO MD
--- NOTE | 2020-08-26 13:03 | ED.RN ---
NO OLD EKGS
--- NOTE | 2020-08-26 13:03 | ED.VIS.GEN ---
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 He denies any constitutional symptoms of fever, chills or night sweats. He denies weight loss or weight gain. He denies history of VTE, leg pain or leg swelling. He has no risk factors for VTE. He denies history of peptic ulcers, GERD, esophagitis or hiatal hernia. He denies intolerance to food. He denies hematemesis, melena or hematochezia. Patient has not taken anything for the pain today. He presents because it has persisted longer than episode on Wednesday. He is a non-smoker. He has no cardiac risk factors. There is no family history cardiac disease per patient. Prior similar symptoms: No Recent Illness/Hospitalization: No - Past Medical History (1) Deaf-mutism Status: Inactive (2) Deaf Status: Acute Past Medical History - Allergies and Home Meds Allergies/Adverse Reactions: Allergies No Known Allergies Allergy (Verified 08/26/20 12:45) Prior records reviewed: Yes - Gout Surgical History: noncontributory Lives: Alone Smoking Status: Never smoker Alcohol: None Drugs: None Review of Systems General: Denies: Chills, Fever, Sweats Eyes: Denies: Visual changes - bilaterally, Blurred Vision - bilaterally ENT: Denies: Rhinorrhea, Sore throat Cardiovascular: Reports: Chest pain. Denies: Palpitations, Heart racing, -, - Respiratory: Reports: Dyspnea. Denies: Cough, Sputum, Dyspnea on exertion, Orthopnea, Paroxysmal nocturnal dyspnea, -, - Gastrointestinal: Denies: Abdominal pain, Nausea, Vomiting, Diarrhea, Melena, Hematochezia Genitourinary: Denies: Dysuria, Hematuria, Frequency Musculoskeletal: Denies: Myalgias, Arthralgias, Neck pain, Back pain, Swelling, Extremity Pain Skin: Denies: Rash, Wounds Neurological: Denies: Headache, Weakness, Numbness Endocrine: Denies: Polyuria, Polydipsia Hematologic: Denies: Easy bruising, Easy bleeding Physical Exam Vital Signs/Narrative: Vital Signs Temp Pulse Resp BP Pulse Ox 08/26/20 12:45 97.2 F L 73 17 137/90 H 96 Inital Vital Signs reviewed: Yes General: Well nourished, Well developed, No Acute Distress Head: Normocephalic, Atraumatic Eyes: Perrl, EOMI. Negative for: Pale conjunctiva, Scleral icterus ENT: Moist mucous membranes, No rhinorrhea Neck: Supple, Nontender, No lymphadenopathy, No JVD Cardiovascular: Regular rate, Regular rhythm, No murmurs, Normal S1, Normal S2 Respiratory: No distress, CTA bilaterally, Chest nontender Abdomen: Soft, Nontender, Nondistended, Normal bowel sounds Back: Nontender, Normal Inspection Extremities: Nontender, No edema, - - There is no asymmetry, swelling, discoloration, leg vein distention, palpable cords or tenderness along the distribution of the deep venous system. Skin: Normal color, No rash Neurological: Alert, Oriented x3, Cranial nerves II-XII grossly intact, Normal Strength, Normal Sensation Psychological: Normal affect, Normal Mood Diagnostic/Tx/Re-eval - EKG Initial EKG Interpretation: Sinus Rhythm - Sinus rhythm with occasional premature ventricular beat and a ventricular rate of 67. MO interval 270 ms. QRS duration 88 ms. QT duration 392 ms. [place] is normal. Other than the premature beats the EKG is normal - Medical Decision Making Patient presents with left-sided chest pain that came on with activity on Wednesday and today. Will obtain EKG to rule out STEMI. Work-up was undertaken to rule out cardiac etiology versus other. He was treated with aspirin and since he is still complaining of discomfort in his chest with shortness of breath and radiation to left arm he received nitroglycerin. ED Disposition - Plan for ED Patient: Disposition: Acute Care [facility] Diagnosis: Chest pain in adult, Deaf
[2020-08-26 13:12] LABS: Absolute Lymphocyte Count 1.82 X10^3/uL (0.83-4.51); Absolute Neutrophil Count 4.3 X10^3/uL (2.0-7.7); Basophil# 0.05 X10^3/uL; Basophil% 0.7 % (0-1); Eosinophil# 0.39 X10^3/uL; Eosinophils% 5.3 % (0-5); Hematocrit 42.8 % (40-54); Hemoglobin 14.2 g/dL (13.0-16.5); Lymphocyte # 1.82 X10^3/ul (4.0); Lymphocyte % 24.8 % (19-41); Mean Corp Hgb Conc 33.2 g/dL (32-36); Mean Corpuscular Hgb 29.3 pg (27.0-32.0); Mean Corpuscular Volume 88.4 fL (80-94); Mean Platelet Vol. 9.6 fl (6.2-12.0); Monocyte# 0.75 X10^3/uL; Monocyte% 10.2 % (0-10); NRBC Flagged by Analyzer 0 % (0-5); Neutrophil # 4.31 X10^3/uL (2.7-7.7); Neutrophil % 58.6 % (47-70); Platelet Count 247 K/mm3 (150-450); RBC Distribution Width CV 13.7 % (11.6-14.6); RBC Distribution Width SD 44.5 fl (35.1-43.9); Red Blood Count 4.84 M/mm3 (4.6-6.2); White Blood Count 7.4 K/mm3 (4.4-11.0)
[2020-08-26] MEDS: Aspirin 81 MG TAB.CHEW 324 MG PO (13:27)
[2020-08-26] MEDS: Nitroglycerin SL (ED/IMG/CATH) 0.4 MG TABLET SUBLINGUAL ×3 (13:29→14:18)
[2020-08-26 13:30] LABS: Anion Gap 8 (5-15); BUN 17 mg/dL (7-18); BUN/Creat Ratio 14.9 RATIO (10-20); Calcium,Total 9.1 mg/dL (8.5-10.1); Chloride 107 mmol/L (98-107); Creatinine, Serum 1.14 mg/dL (0.70-1.30); EST Glomerular Filtration Rate 72 mL/min (>60); Est Glom Filt Rate - Afr Amer 87 mL/min (>60); Estimated Creatinine Clearance 81.65 ml/min; Glucose 103 mg/dL (74-106); Potassium 3.8 mmol/L (3.5-5.1); Sodium Level 141 mmol/L (136-145)
--- NOTE | 2020-08-26 14:27 | HP.PCM_ITS ---
History of Present Illness Date of Admission: 08/26/20 Chief Complaint: chest pain The patient is a 50 year old M with a PMH as outlined, including being deaf. He was admitted with a complaint of chest pain which started one day prior to admission, and was exacerbated by exertion and relieved by rest. Chest pain recurred today. He had no other systemic symptoms and denied any shortness of breath, lightheadedness or dizziness, palpitations, 0 vomiting. Review of systems otherwise negative. In the ED, vitals showed temperature of 91.2 with blood pressure of 111/69, pulse rate of 60 and respiratory rate of 18. Chest x- ray showed no acute cardiopulmonary process. Chemistry showed initial troponin of less than 0.015 but was otherwise unremarkable. CBC was also unremarkable. EKG showed no acute ST changes. He has been admitted to manage for chest pain rule out ACS. [] Past Medical History Allergies No Known Allergies Allergy (Verified 08/26/20 12:45) Home Medications: Ambulatory Orders Medication Instructions Recorded Allopurinol 300 mg PO DAILY 08/26/20 Surgical History: noncontributory Lives: Alone Smoking Status: Never smoker Alcohol: None Drugs: None - *Family History Maternal History Items: No pertinent history Paternal History Items: No pertinent history Review of Systems Constitutional: Denies: Chills, Fever, Malaise, Weight Change HEENT: Denies: Head Aches, Sinus Congestion, Sinus Drainage Cardiovascular: Reports: Chest Pain, Chest Pressure, Chest Tightness, Palpitations. Denies: Edema, Heaviness, Light Headedness, Orthopnea, Paroxysmal Noc. Dyspnea Respiratory: Denies: Cough, Shortness of Breath, Shortness of breath at rest, Shortness of breath upon exertion, Sputum production Gastrointestinal: Denies: Abdominal Pain, Nausea, Vomiting Genitourinary: Denies: Dysuria Musculoskeletal: Denies: Joint Pain, Joint Tenderness Skin: Denies: Rash, Wounds Neurological: Denies: Numbness, Tingling, Focal weakness Psychiatric: Denies: Anxiety, Depression, Homicidal Ideations, Suicidal Ideations Hematologic/ Lymphatic: Denies: Easy Bruising, Easy Bleeding VTE Information - Inpt Only VTE Present on Admission: No VTE Pharm Prophylaxis ordered?: Yes Patient Problems: Active and Suspected Problems Deaf (Acute) Chest pain in adult (Acute) - Physical Exam Vitals/I&O's: Vital Signs Temp Pulse Resp BP Pulse Ox 97.2 F L 60 18 111/69 98 08/26/20 12:45 08/26/20 14:18 08/26/20 14:00 08/26/20 14:18 08/26/20 14:00 Oxygen Delivery Method Room Air Weight: 256 lb 2.834 oz Body Mass Index (BMI) 35.7 General: Alert, Oriented x3, Cooperative, No apparent distress HEENT: Atraumatic, PERRLA, EOMI, Normocephalic Oral: Dry Mucosa Neck: Supple, No JVD, Negative Carotid Bruits Lungs: Clear to auscultation, Normal air movement, No rhonchi, No wheeze, No rales Cardiovascular: Regular rate, Regular Rhythm, Normal S1, Normal S2, No murmurs Abdomen: Bowel Sounds Present, Soft, Non Tender, Non-Distended, No Hepato- splenomegaly Extremities: No clubbing, No cyanosis, No edema, Capillary Refill Less than 3 Seconds Skin: No rashes, No breakdown Musculoskeletal: No Tenderness to Palpation of Joints or Extremities Lymphatic: No Cervical, Supraclavicular, or Inguinal Adenopathy Neurological: Cranial nerves II-XII grossly intact, Neuro grossly intact, Motor Exam 5/5 strength throughout Psych/Mental Status: Normal Affect, Appropriate, Alert and oriented to time, place, person, mood and affect Laboratory Results 08/26/20 13:00: WBC 7.4, RBC 4.84, Hgb 14.2, Hct 42.8, MCV 88.4, MCH 29.3, MCHC 33.2, RDW Std Deviation 44.5 H, RDW Coeff of Aileen 13.7, Plt Count 247, MPV 9.6, Immature Gran % (Auto) 0.400, Neut % (Auto) 58.6, Lymph % (Auto) 24.8, [place] % (Auto) 10.2 H, Eos % (Auto) 5.3 H, Baso % (Auto) 0.7, Absolute Neuts (auto) 4.3, Absolute Lymphs (auto) 1.82, Nucleated RBC % 0 08/26/20 13:00: Sodium 141, Potassium 3.8, Chloride 107, Carbon Dioxide 26.0, Anion Gap 8, BUN 17, Creatinine 1.14, Estim Creat Clear Calc 81.65, Est GFR (MDRD) Af Amer 87, Est GFR (MDRD) Non-Af 72, BUN/Creatinine Ratio 14.9, Glucose 103, Calcium 9.1, Troponin I < 0.015 Diagnostic Data Chest X-Ray 08/26/20 13:02 IMPRESSION: No acute abnormality is seen. Electronically Signed: Cory Tracey, at 13:25 EST , Service support , Assessment/Plan All Active Problems Deaf (Acute) Chest pain in adult (Acute) 50-year-old male admitted with a complaint of chest pain. #Chest pain to r/o ACS * Admit to PCU with telemetry. * Cycle troponins x3 * Sublingual nitroglycerin as needed. P.o. aspirin 81 mg daily. * For stress test tomorrow if troponins are negative. * #History of deafness: Stable #gout: on allopurinol DVT prophylaxis: Lovenox OBSV E&M: [id number] Initial observation care L2
--- NOTE | 2020-08-26 14:29 | NURSING ---
DR JUDITH HERRERA
--- NOTE | 2020-08-26 14:38 | NURSING ---
PRATIBHA WONG CP WITH ACTIVITY
--- NOTE | 2020-08-26 16:21 | EKG12_ITS ---
Test Reason : CP Blood Pressure : / mmHG Vent. Rate : 068 BPM Atrial Rate : 068 BPM P-R Int : 172 ms QRS Dur : 084 ms QT Int : 398 ms P-R-T Axes : 043 017 039 degrees QTc Int : 423 ms Normal sinus rhythm Normal ECG Confirmed by IRINA DECKER, KRISTINE ([id number]), state editor MARIA EUGENIA NEWMAN ([id number]) on 08/28/2020 1:58:04 PM Referred By: TEJAL Confirmed By:KRISTINE AREVALO MD
[2020-08-26] MEDS: 0.9% Saline Lock 10 ML Syringe IV (16:31)
[2020-08-26] MEDS: Morphine 2 MG/ML Syringe IV (16:31)
[2020-08-27 02:09] VITALS: BP 117/78; PULSE 62; RESP 18; TEMP 36.8; O2SAT 94
--- NOTE | 2020-08-27 02:13 | EKG12_ITS ---
Test Reason : Blood Pressure : / mmHG Vent. Rate : 060 BPM Atrial Rate : 060 BPM P-R Int : 176 ms QRS Dur : 090 ms QT Int : 412 ms P-R-T Axes : 002 -01 028 degrees QTc Int : 412 ms Normal sinus rhythm Normal ECG Confirmed by IRINA DECKER, KRISTINE ([id number]), editorial manager MARIA EUGENIA NEWMAN ([id number]) on 08/28/2020 1:58:18 PM Referred By: TEJA Confirmed By:KRISTINE AREVALO MD
[2020-08-27] MEDS: 0.9% Saline Lock 10 ML Syringe IV (02:14)
[2020-08-27] MEDS: Morphine 2 MG/ML Syringe IV (02:15)
[2020-08-27 03:00] VITALS: PULSE 52
[2020-08-27] MEDS: Aspirin E.C. 81 MG Tablet PO (05:30)
[2020-08-27 06:27] VITALS: BP 137/86; PULSE 57; RESP 16; TEMP 37.1; O2SAT 97
[2020-08-27 06:52] VITALS: PULSE 48
[2020-08-27] MEDS: Allopurinol 300 MG Tablet PO (10:57)
--- NOTE | 2020-08-27 11:04 | NURSING ---
per patient, okay to share information with [employer] [phone], patient's father
--- NOTE | 2020-08-27 11:33 | STRESSREP_ITS ---
Stress Test Report Date: 08-27-2020 Procedure: Exercise tolerance test/imaging study Indications: Chest pain Consent: Per the patient Procedure: The patient exercised on a Js protocol for 9 minutes completing Stage III achieving a peak heart rate of 150 bpm (88% predicted maximal heart rate) with a peak blood pressure 174/78 mmHg and a peak MET capacity of 10 METs. The baseline ECG demonstrated sinus bradycardia. The peak exercise ECG demonstrated somatic/motion artifact with no obvious ECG changes. There was a rare PVC during exercise and recovery. The functional capacity was considered good. There was no complaint of chest discomfort during exercise or recovery. The examination was discontinued secondary to dyspnea. Impression: 1. Technically adequate (percent predicted maximal heart rate greater than 85%) exercise tolerance test 2. Peak exercise ECG with no obvious ECG changes 3. There was a rare PVC during exercise 4. Nuclear images pending Myocardial perfusion imaging study: Technique: The patient was injected with 14.9 mCi of technetium 99m Cardiolite and subsequently rest SPECT Cardiolite nuclear imaging was obtained in the horizontal long, vertical long, and short axis views. The patient exercised on a Js protocol for 9 minutes completing Stage III achieving a peak heart rate of 150 bpm (88% predicted maximal heart rate) with a peak blood pressure 174/78 mmHg and a peak MET capacity of 10 METs. The patient was injected with 44.5 mCi of technetium 99m Cardiolite and subsequently stress SPECT Cardiolite nuclear imaging was obtained in the horizontal long, vertical long, and short axis views. A gated Cardiolite study at peak stress was obtained. Interpretation: Rest and stress SPECT Cardiolite nuclear imaging status post realignment, normalization, and attenuation correction, demonstrates the appearance of relative uniform tracer uptake and myocardial perfusion appearing within normal limits. There is end systolic thickening and brightening. The gated Cardiolite study demonstrates myocardial thickening and inward wall motion. The reported LVEF is 74%. Impression: 1. Rest and stress SPECT Cardiolite nuclear imaging demonstrate relative uniform tracer uptake and myocardial perfusion appearing within normal limits. 2. The gated Cardiolite study reports an LVEF of 74%. This note was generated with [employer] software. It may contain incorrect words, spelling, and punctuation that were not noted in checking the note before signing.
--- NOTE | 2020-08-27 11:48 | DCINST_ITS ---
- Discharge Diagnoses Current Active Problems: Current Active and Chronic Problems Deaf (Acute) Chest pain in adult (Acute) You will use the following diet at home:: No restrictions Your food should be the consistency of: Regular Your liquids should be the consistency of: Regular/Thin Discharge Activity: Return to Normal Activity Weight Bearing Status: Full weight bearing Allergies/Adverse Reactions: Allergies No Known Allergies Allergy (Verified 08/26/20 12:45) Medications to take at Discharge Allopurinol 300 mg PO DAILY 08/26/20 Primary Care Physician: Yoan Ballard MD [Primary Care Provider] - Please follow up with your Primary Care Physician in: IN 2-3 WEEKS Test Results: Test results from this visit will be discussed in further detail at your follow- up appointment, if applicable.
[2020-08-27 11:55] VITALS: BP 142/76; PULSE 52; RESP 16; TEMP 36.4; O2SAT 96
--- NOTE | 2020-08-27 11:55 | PHA.DC.MR ---
Pharmacy Service has performed discharge medication reconciliation for this patient. The patient's discharge medication list was reviewed for discrepancies and discrepancies were resolved. Home Medications Allopurinol 300 mg PO DAILY 08/26/20
--- NOTE | 2020-08-27 12:39 | DS.PCM_ITS ---
Discharge Date and Diagnosis - Problem List Patient Problems: Active and Suspected Problems Deaf (Acute) Chest pain in adult (Acute) Date of Admission: 08/26/20 Date of Discharge: 08/27/20 - Primary Discharge Diagnosis Acute Problems: Active Problems #1 musculoskeletal chest pain Hospital Course and Treatment Imaging Results: 08/27/20 05:55 Nuclear Stress Test - Treadmil [NM] Routine Operations: None Procedures: Nuclear stress test Summary of Care Provided: The patient is a 50 year old M was seen in the emergency room at [facility] with a chief complaint of chest pain, work-up in the emergency room included chest x-ray, and EKG, and labs all of which were unremar kable. Patient was placed in observation status on PCU, patient's cardiac enzymes were cycled and these remain normal, he underwent an exercise nuclear stress test on 08/27/2020 which was negative for reversible ischemia. On 08/27/2020, patient was seen and examined: On examination he appeared in good health and spirits, patient is deaf. Vital signs as documented. Skin warm and dry and without overt rashes. Neck without JVD, neck was supple, trachea midline, thyroid was normal. Lungs clear bilaterally, normal air movement was noted. Heart exam notable for regular rhythm, normal sounds and absence of murmurs, rubs or gallops. Abdomen unremarkable and without evidence of organomegaly, masses, or abdominal aortic enlargement. Bowel sounds are present, abdomen is not distended. Extremities nonedematous, no cyanosis was noted, no clubbing was noted. Neuro: Cranial nerves II through XII are grossly intact, no focal motor deficits were noted, sensation to light touch and pinprick intact, motor exam 5/5 throughout. Psych: Patient is alert and oriented x3, he does not appear anxious or depressed, he does not appear agitated. Patient was discharged home in stable condition on 08/27/2020. Patient Problems: Active and Suspected Problems Deaf (Acute) Chest pain in adult (Acute) - Physical Exam Vitals/I&O's: Vital Signs Temp Pulse Resp BP Pulse Ox 97.6 F L 52 L 16 142/76 H 96 08/27/20 11:55 08/27/20 11:55 08/27/20 11:55 08/27/20 11:55 08/27/20 11:55 Oxygen Flow Rate (L/min) 2 Oxygen Delivery Method Room Air Weight: 115.666 kg Body Mass Index (BMI) 35.5 Intake and Output for Last 24 Hours 08/25/20 08/26/20 08/27/20 23:59 23:59 23:59 Intake Total 150 / 150 220 / 220 Output Total 200 / 200 Balance -50 / -50 220 / 220 Laboratory Results 08/26/20 13:00: WBC 7.4, RBC 4.84, Hgb 14.2, Hct 42.8, MCV 88.4, MCH 29.3, MCHC 33.2, RDW Std Deviation 44.5 H, RDW Coeff of Aileen 13.7, Plt Count 247, MPV 9.6, Immature Gran % (Auto) 0.400, Neut % (Auto) 58.6, Lymph % (Auto) 24.8, [place] % (Auto) 10.2 H, Eos % (Auto) 5.3 H, Baso % (Auto) 0.7, Absolute Neuts (auto) 4.3, Absolute Lymphs (auto) 1.82, Nucleated RBC % 0 08/26/20 13:00: Sodium 141, Potassium 3.8, Chloride 107, Carbon Dioxide 26.0, Anion Gap 8, BUN 17, Creatinine 1.14, Estim Creat Clear Calc 81.65, Est GFR (MDRD) Af Amer 87, Est GFR (MDRD) Non-Af 72, BUN/Creatinine Ratio 14.9, Glucose 103, Calcium 9.1, Troponin I < 0.015 08/26/20 16:18: Troponin I < 0.015 08/26/20 19:05: Troponin I < 0.015 Discharge Activity: Return to Normal Activity Weight Bearing Status: Full weight bearing Home Medications: Medications to take at Discharge Allopurinol 300 mg PO DAILY 08/26/20 Primary Care Physician: Yoan Ballard MD [Primary Care Provider] - Please follow up with your Primary Care Physician in: IN 2-3 WEEKS Disposition: Home Minutes spent on discharge:: 30 Patient Condition:: Stable Medical Necessity - Tobacco Use Smoking Status: Never smoker Meaningful Use Info Meaningful Use Diagnoses (Choose all that apply): None applicable OBSV E&M: 98677 Observation care discharge
== END 2020-08-27 12:13 | disposition home or self-care (01) ==
LOC: ED 13:07 → PCU 14:38
PROVIDERS: Admitting Provider Student in an Organized Health Care Education/Training Program; Emergency Provider Emergency Medicine; PCP Family Medicine; Visit Provider Internal Medicine
DX: R07.89 Other chest pain (principal); R20.0 Anesthesia of skin; M79.602 Pain in left arm; R06.00 Dyspnea, unspecified; H91.3 Deaf nonspeaking, not elsewhere classified; M10.9 Gout, unspecified; Z79.899 Other long term (current) drug therapy
CPT/HCPCS: 71045; 78452; 80048; 84484; 85025; 93005; 93017; 96374; 96375; 99218; 99282; A9500; A4216; G0378

== ENCOUNTER 2020-11-13 09:27 | Emergency (ER) | payer MEDICARE, SELFPAY ==
[2020-08-26 15:25] VITALS: BMI 35.5
[2020-11-13 09:29] VITALS: BP 129/89; PULSE 64; RESP 17; TEMP 36.6; O2SAT 97; BMI 36.2
--- NOTE | 2020-11-13 10:01 | ED.DCSUM_ITS ---
- ER Visit Summary Date of Service: 11/13/20 Chief Complaint: Back pain History of Present Illness: The patient is a 50 M presenting with back pain. Patient states this started approximately 1 week ago. He has been seeing a chiropractor. Today he picked up a case of water had increasing pain in his right lower back. He has tried muscle relaxers at home. He denies fever. Denies bowel or bladder incontinence. He is able to ambulate with pain. Physical Examination: Vitals are stable. Patient is afebrile. Alert no acute distress. HEENT exam is unremarkable. Neck is supple. Lungs are clear and equal bilaterally. Heart is regular rate and rhythm. Abdomen is soft nontender nondistended. Back: Right paraspinal lumbar muscle tenderness, no midline tenderness. Straight leg raise positive at 30 degrees on the right Extremities are unremarkable. Skin is warm and dry. No focal neurologic deficit. Normal strength and sensation Remainder of exam is unremarkable. Emergency Department Course and Treatment: Patient was given morphine, Zofran IM with improvement of his symptoms. He is advised to follow-up with his primary care physician. He is given prescription for short course of [place]. Advised return to the ED for worsening complaints. Disposition: Discharge home Impression: Lumbar strain This note was generated with [place] dictation software. It may contain incorrect words, spelling, and punctuation that were not noted in review of the chart prior to signing ED Disposition - Plan for ED Patient: Instructions: ED Back Sprain/Strain Prescriptions: Hydrocodone Bitart/Apap 5-325 [[place] 5MG-325MG] 1 tab PO Q6H PRN PRN 3 Days #10 tab PRN Reason: Pain Prescription Printed Referrals: Yoan Ballard MD [Primary Care Provider] -
[2020-11-13] MEDS: morphine 8 MG/ML Syringe IM (10:11)
[2020-11-13] MEDS: Ondansetron 4 MG/2 ML Vial IM (10:11)
--- NOTE | 2020-11-13 10:19 | ED.DEP ---
ED Disposition - Plan for ED Patient: Instructions: ED Back Sprain/Strain Prescriptions: Hydrocodone Bitart/Apap 5-325 [[place] 5MG-325MG] 1 tab PO Q6H PRN PRN 3 Days #10 tab PRN Reason: Pain Prescription Printed Referrals: Yoan Ballard MD [Primary Care Provider] -
== END 2020-11-13 10:48 | disposition home or self-care (01) ==
PROVIDERS: Emergency Provider Emergency Medicine; PCP Family Medicine
DX: S39.012A Strain of muscle, fascia and tendon of lower back, initial encounter (principal); X50.0XXA Overexertion from strenuous movement or load, initial encounter; Y93.89 Activity, other specified; Y92.89 Other specified places as the place of occurrence of the external cause; Y99.8 Other external cause status
CPT/HCPCS: 96372; 99282; J2405

== ENCOUNTER 2020-12-16 00:47 | Emergency (ER) | payer MEDICARE, SELFPAY ==
[2020-12-16 00:48] VITALS: BP 140/81; PULSE 82; RESP 15; TEMP 36.7; O2SAT 96; BMI 36.8
--- NOTE | 2020-12-16 01:00 | ED.DCSUM_ITS ---
- ER Visit Summary Date of Service: 12/16/20 Chief Complaint: Patient with atraumatic left foot pain and swelling for the last 3 days History of Present Illness: The patient is a 50 M history of gout, kidney stone, arthritis and deafness. Patient states he had atraumatic left foot pain, redness and swelling for last 3 days. He has had gout in his foot before and says it feels like gout. He denies any fever or chills. He has had no trauma or injury. He is out of pain medication. Physical Examination: Middle-aged male no acute distress vital signs stable afebrile. Patient is deaf but he reads lips and can communicate well. H EENT exam unremarkable. Neck nontender. Lungs clear to auscultation bilaterally. Heart regular rhythm no murmur. Abdomen soft nontender. Patient is moving all 4 extremities are neurovascularly intact. Specifically his left hip, knee and ankle are nontender nonswollen. His left anterior and lateral foot is red and swollen consistent with gout. There is no bony deformity. No bruising. He has a strong DP pulse. He is able to dorsi and plantarflex his ankle. There is no streaking. He is able to wiggle his toes and has normal touch sensation. He has normal capillary refill. Skin is intact. Neurologically is awake and alert. He is moving all 4 extremities. Test Results: None Emergency Department Course and Treatment: History and exam are consistent with acute gout flare of his left foot. He will be treated with p.o. prednisone and p.o. [place] for pain. Patient is driving home so he will take the [place] when he gets home. Treatment Plan: [place] for pain. Prednisone 40 mg a day for 1 week. Follow-up with his primary care physician. Disposition: Discharge Impression: Acute left foot pain and swelling secondary to acute gouty arthritis flare This note was generated with [employer] dictation software. It may contain incorrect words, spelling, and punctuation that were not noted in review of the chart prior to signing ED Disposition - Plan for ED Patient: Referrals: Yoan Ballard MD [Primary Care Provider] -
--- NOTE | 2020-12-16 01:03 | DCINST.ED_ITS ---
ED Disposition - Plan for ED Patient: Disposition: Home or Assisted Living Instructions: ED Gout Prescriptions: Hydrocodone Bitart/Apap 5-325 [[place] 5MG-325MG] 1 - 2 tab PO Q4H PRN PRN 4 Days #20 tab PRN Reason: Pain Prescription Printed Prednisone 40 mg PO DAILY 7 Days #14 tab Prescription Printed Referrals: Yoan Ballard MD [Primary Care Provider] - 1 Week if not improving Additional Instructions: [place] and/or Motrin for pain next Prednisone 40 mg a day till gone or foot pain and swelling is completely resolved. Follow-up with your doctor if not improving or return if worse.
[2020-12-16] MEDS: HYDROcodone Bitartrate/Apap 5/325 Tablet PO (01:09)
[2020-12-16] MEDS: predniSONE 20 MG Tablet 60 MG PO (01:09)
[2020-12-16 01:13] VITALS: BP 140/81; PULSE 80; RESP 15; O2SAT 97
== END 2020-12-16 01:25 | disposition home or self-care (01) ==
LOC: ED 01:16
PROVIDERS: Emergency Provider Emergency Medicine; PCP Family Medicine
DX: M10.9 Gout, unspecified (principal); M79.672 Pain in left foot
CPT/HCPCS: 99283

== ENCOUNTER 2021-01-15 04:25 | Emergency (ER) | payer MEDICARE, SELFPAY ==
[2021-01-15 04:27] VITALS: BP 134/82; PULSE 65; RESP 16; TEMP 36.4; O2SAT 96; BMI 35.6
--- NOTE | 2021-01-15 04:40 | RAD_ITS ---
STUDY: X-RAY - RIGHT KNEE REASON FOR EXAM: Male, 50 years old. Pain TECHNIQUE: 4 view(s) of the knee. COMPARISON: None. FINDINGS: Normal visualized distal femur. Normal visualized proximal tibia and fibula. Normal proximal tibiofibular articulation. There is no demonstrated fracture. There is minimal degenerative arthrosis of the medial femorotibial compartment. Normal lateral femorotibial compartment. There is mild degenerative arthrosis of the patellofemoral articulation. Mild joint effusion. The soft tissue structures are unremarkable. RAD/Knee 4 or More Views IMPRESSION: Mild degenerative disease as described. No acute fracture or subluxation. Mild joint effusion. Electronically Signed: Chanel Medina MD at 5:09 EDT , Service support ,
--- NOTE | 2021-01-15 04:41 | ED.DCSUM_ITS ---
History of Present Illness Chief Complaint: Lower Extremity Injury Narrative: This patient is a 50-year-old male who presents with right knee and leg pain. He does have a history of chronic recurrent right knee pain. He recently had a long drive. This is about a 16-hour drive. He was having pain in his right knee so switched and had the other person with him dry. He complains of pain in the back of his knee and calf as well. No history of DVT or pulmonary embolism. No chest pain or difficulty breathing. Past Medical History - Allergies and Home Meds Allergies/Adverse Reactions: Allergies No Known Allergies Allergy (Verified 01/15/21 04:32) Primary Care Physician: Yoan Ballard MD [Primary Care Provider] - Past Medical History: - - Gout Surgical History: noncontributory Smoking Status: Never smoker - Family History Maternal Family History: Reports: No pertinent history Paternal Family History: Reports: No pertinent history Review of Systems All systems negative except as indicated General: Denies: Fever Eyes: Denies: Visual changes - bilaterally ENT: Denies: Bilateral ear pain Cardiovascular: Denies: Chest pain Respiratory: Denies: Dyspnea Musculoskeletal: Reports: Extremity Pain Skin: Denies: Rash Neurological: Denies: Headache Hematologic: Denies: Easy bruising Allergy: Denies: Uticaria Physical Exam Vital Signs/Narrative: Vital Signs Temp Pulse Resp BP Pulse Ox 01/15/21 04:27 97.5 F L 65 16 134/82 H 96 Inital Vital Signs reviewed: Yes General: Well nourished Head: Normocephalic Eyes: EOMI ENT: Moist mucous membranes Neck: Supple Cardiovascular: Regular rate, Regular rhythm Respiratory: No distress, CTA bilaterally Abdomen: Soft Extremities: - - Right calf and knee tenderness no edema easily palpable dorsalis pedis pulse with brisk capillary refill and normal sensation Skin: Normal color Neurological: Alert Psychological: Normal affect Diagnostic/Tx/Re-eval - Medical Decision Making Labs are unremarkable with a negative D-dimer. Right knee x-ray does show a small effusion. Patient was given a prescription for short course of [place] for acute pain control as well as an Cr wrap and was discharged. ED Disposition - Plan for ED Patient: Disposition: Home or Assisted Living Diagnosis: Right knee pain Instructions: ED Knee Effusion, ED Knee Pain of Uncertain Cause Prescriptions: Hydrocodone Bitart/Apap 5-325 [[place] 5MG-325MG] 1 tablet PO Q6H PRN PRN 3 Days #10 tab PRN Reason: Pain Prescription Printed Referrals: Yoan Ballard MD [Primary Care Provider] -
[2021-01-15] MEDS: HYDROcodone Bitartrate/Apap 5/325 Tablet PO (04:47)
[2021-01-15 04:53] LABS: Absolute Lymphocyte Count 1.79 X10^3/uL (0.83-4.51); Absolute Neutrophil Count 4.2 X10^3/uL (2.0-7.7); Basophil# 0.04 X10^3/uL; Basophil% 0.6 % (0-1); Eosinophil# 0.24 X10^3/uL; Eosinophils% 3.4 % (0-5); Hematocrit 39.5 % (40-54); Hemoglobin 13.2 g/dL (13.0-16.5); Lymphocyte # 1.79 X10^3/ul (4.0); Lymphocyte % 25.6 % (19-41); Mean Corp Hgb Conc 33.4 g/dL (32-36); Mean Corpuscular Hgb 29.7 pg (27.0-32.0); Mean Platelet Vol. 9.5 fl (6.2-12.0); Monocyte# 0.72 X10^3/uL; Monocyte% 10.3 % (0-10); NRBC Flagged by Analyzer 0 % (0-5); Neutrophil # 4.17 X10^3/uL (2.7-7.7); Neutrophil % 59.7 % (47-70); Platelet Count 226 K/mm3 (150-450); RBC Distribution Width SD 42.6 fl (35.1-43.9); Red Blood Count 4.44 M/mm3 (4.6-6.2)
[2021-01-15 05:01] LABS: International Normalized Ratio 1.1; Prothrombin Time (Protime)PT. 13.2 SECONDS (11.7-14.9)
[2021-01-15 05:04] LABS: D-Dimer Quantitative (DVT/PE) <= 0.27 FEU/ug/m (0.27-0.49)
[2021-01-15 05:07] LABS: Anion Gap 4 (5-15); BUN 14 mg/dL (7-18); BUN/Creat Ratio 15.4 RATIO (10-20); Calcium,Total 8.9 mg/dL (8.5-10.1); Chloride 108 mmol/L (98-107); Creatinine, Serum 0.91 mg/dL (0.70-1.30); EST Glomerular Filtration Rate 93 mL/min (>60); Est Glom Filt Rate - Afr Amer 113 mL/min (>60); Estimated Creatinine Clearance 102.28 ml/min; Glucose 103 mg/dL (74-106); Potassium 3.8 mmol/L (3.5-5.1); Sodium Level 141 mmol/L (136-145)
[2021-01-15 05:36] VITALS: BP 134/81; PULSE 60; RESP 16; O2SAT 98
[2021-01-15 05:59] VITALS: BP 132/69; PULSE 79; RESP 16; O2SAT 98
== END 2021-01-15 05:59 | disposition home or self-care (01) ==
PROVIDERS: Emergency Provider Emergency Medicine; PCP Family Medicine
DX: M25.561 Pain in right knee (principal); M79.661 Pain in right lower leg
CPT/HCPCS: 73564; 80048; 85025; 85379; 85610; 99284; A4216

== ENCOUNTER 2021-10-24 16:39 | Observation (INO) | payer MEDICARE, SELFPAY ==
[2021-10-24 16:39] VITALS: BP 165/112; PULSE 75; RESP 16; TEMP 36.4; O2SAT 97; BMI 37.3
[2021-10-24] MEDS: Ketorolac 15 MG/ML Vial IV (18:54)
[2021-10-24] MEDS: Ondansetron 4 MG/2 ML Vial IV (18:54)
[2021-10-24] MEDS: 0.9% Normal Saline 1,000 ML 250 ML IV (18:54)
[2021-10-24 19:05] LABS: Bacteria 0 SEEN /hpf (None Seen); Mucous, Urine 0 SEEN /hpf (<or=2+); White Blood Cells 0 SEEN /hpf (0-5)
[2021-10-24 19:07] LABS: Absolute Lymphocyte Count 1.58 X10^3/uL (0.83-4.51); Absolute Neutrophil Count 6.4 X10^3/uL (2.0-7.7); Basophil# 0.04 X10^3/uL; Basophil% 0.4 % (0-1); Eosinophil# 0.24 X10^3/uL; Eosinophils% 2.6 % (0-5); Hematocrit 40.5 % (40-54); Hemoglobin 13.6 g/dL (13.0-16.5); Lymphocyte # 1.58 X10^3/ul (0.83-4.51); Lymphocyte % 17.2 % (19-41); Mean Corp Hgb Conc 33.6 g/dL (32-36); Mean Corpuscular Hgb 28.7 pg (27.0-32.0); Mean Corpuscular Volume 85.4 fL (80-94); Mean Platelet Vol. 9.4 fl (6.2-12.0); Monocyte# 0.86 X10^3/uL; Monocyte% 9.3 % (0-10); NRBC Flagged by Analyzer 0 % (0-5); Neutrophil # 6.44 X10^3/uL (2.7-7.7); Platelet Count 241 K/mm3 (150-450); RBC Distribution Width CV 13.1 % (11.6-14.6); RBC Distribution Width SD 40.9 fl (35.1-43.9); Red Blood Count 4.74 M/mm3 (4.6-6.2); White Blood Count 9.2 K/mm3 (4.4-11.0)
[2021-10-24 19:09] LABS: Color, Urine Yellow (Yellow); Glucose, Dipstick Normal (Normal); Ketone-Dipstick Negative (Negative); Leukocyte Esterase-Dipstick Negative /ul (Negative); Nitrite-Dipstick Negative (Negative); Occult Blood-Urine 250 /ul (Negative); Protein-Dipstick Negative (Negative); Specific Gravity, Urine 1.015 (1.002-1.030); Urine Bilirubin Dipstick Negative (Negative); Urine Clarity Clear (Clear); Urine Urobilinogen Normal (Normal)
[2021-10-24 19:15] LABS: Anion Gap 4 (5-15); BUN 17 mg/dL (7-18); BUN/Creat Ratio 14.3 RATIO (10-20); Calcium,Total 9.3 mg/dL (8.5-10.1); Chloride 106 mmol/L (98-107); Creatinine, Serum 1.19 mg/dL (0.70-1.30); EST Glomerular Filtration Rate 68 mL/min (>60); Est Glom Filt Rate - Afr Amer 82 mL/min (>60); Estimated Creatinine Clearance 74.98 ml/min; Glucose 92 mg/dL (74-106); Sodium Level 139 mmol/L (136-145)
[2021-10-24 19:18] LABS: Red Blood Cells-Urine 25-50 SEEN /hpf (0-5)
[2021-10-24 19:19] LABS: Squamous Epithelial Cells - UA 0-5 SEEN /hpf (0-5)
--- NOTE | 2021-10-24 20:03 | CT_ITS ---
STUDY: CT Abdomen And Pelvis W/O Contrast Injection 10/24/2021 8:32 PM REASON FOR EXAM: Male, 51 years old. ABDOMINAL PAIN Kidney Stone TECHNIQUE: Transaxial images were obtained without oral contrast, and without intravenous contrast. Individualized dose optimization techniques were used for this CT. COMPARISON: 04.29.18. FINDINGS: The visualized lung bases are unremarkable. The visualized portions of the heart are within normal limits. There is hepatomegaly with diffuse hepatic enlargement. Normal gallbladder and extrahepatic biliary system. Normal spleen. Normal pancreas. Normal bilateral adrenal glands. Mild hydronephrosis caused by right 3.6 mm UVJ stone. No acute findings of the left kidney. Normal visualized stomach. Normal small intestine. Stool throughout the colon. There is non-visualization of the appendix. There are no acute findings of the abdominal aorta. Normal inferior vena cava. Subcentimeter mesenteric lymph nodes. Normal urinary bladder. There are bilateral inguinal hernias containing fat. There is no bowel involvement. There is no incarceration. There is no findings suggesting that this is causing a bowel obstruction. There are diffuse degenerative changes of the visualized lumbar spine. IMPRESSION: (NOT LISTED IN ORDER OF SIGNIFICANCE) Mild hydronephrosis caused by right 3.6 mm UVJ stone. No There is hepatomegaly with diffuse hepatic enlargement. Other findings as above. Electronically Signed: Chico Hadry MD at 20:34 EST , Service support , CT/Abdomen/Pelvis without Cont
--- NOTE | 2021-10-24 20:21 | ED.VIS.BACK ---
HPI History of Present Illness Chief Complaint: Back Detail of Chief Complaint: Acute right flank pain radiating anteriorly to the groin Informant: patient Onset/Context/Timing Onset: Hours Context: Sudden Onset Chronic pain exacerbated by: Nothing Timing: Continuous and Waxes and wanes Quality: - (Colicky) Location: Lumbar Current Severity: Severe Maximum Severity: Severe Worsened by: improves with Nothing Relieved by: Nothing Associated Symptoms Associated Symptoms: Abdominal Pain; Negative for Numbness, Tingling, Radiation to Right Leg, Radiation to Left Leg, Fever, Dysuria, Unable to Ambulate, Unable to Transfer, Urinary Retention, Urinary Incontinence, Constipation and Fecal Incontinence Narrative Narrative: Patient is a 51-year-old male who reads lips who presents with abrupt onset of right flank pain rating anteriorly. He had some episode several years ago and was diagnosed with a kidney stone. He denies history of diabetes, hypertension, hypercholesterolemia. Does have history of gout. He denies dysuria, frequency, urgency or hematuria. He denies testicular pain. Denies testicular swelling or scrotal swelling. He denies penile lesion. Prior similar symptoms: Yes (Renal lithiasis on the left) Recent Illness/Hospitalization: No PFSH [facility] Medical History (Updated 10/25/21 @ 08:[address] Ozzie Villasenor MD) Ureterolithiasis Home Medications allopurinol 300 mg PO DAILY 08/26/20 [History Last Taken 08/22/20] Allergy/AdvReac Type Severity Reaction Status Date / Time No Known Allergies Allergy Verified 10/24/21 16:44 Social History (Updated 10/24/21 @ 20:[address] Wellington Tenorio MD) household members: none Smoking Status: Never smoker substance use type: does not use ROS ROS ED Constitutional Constitutional ED: Denies chills, fever(s), subjective or sweats Eyes Eyes: Denies blurry vision, change in vision or diplopia ENT ENT ED: Denies ear pain, rhinorrhea or sore throat Cardiovascular Cardiovascular: Denies chest pain, orthopnea, palpitations or paroxysmal nocturnal dyspnea Respiratory/Chest Respiratory/Chest: Denies dyspnea, dyspnea on exertion, orthopnea or paroxysmal nocturnal dyspnea Gastrointestinal Gastrointestinal: Reports abdominal pain and nausea; Denies constipation, diarrhea, melena or vomiting Genitourinary Genitourinary ED: Denies dysuria, hematuria or urinary frequency Musculoskeletal Musculoskeletal: Reports back pain; Denies arthralgias, myalgias or neck pain Integumentary Denies rash Neurologic Neurologic: Denies paresthesias or weakness Hematologic/Lymphatic Hematologic/Lymphatic: Denies easy bleeding or easy bruising EXAM Physical Exam Const Vital Signs: 10/24/21 16:39 10/24/21 20:52 Temperature 97.5 F L Temperature Source Temporal Pulse Rate 75 78 Respiratory Rate 16 17 Blood Pressure 165/112 H 153/91 H Blood Pressure Mean 129 111 Pulse Ox 97 97 Oxygen Delivery Method Room Air Room Air Positive well nourished, well developed and obese General Appearance ED: well developed and other Patient is in obvious discomfort writhing and walking because he cannot find a position of comfort. Nutritional Appearance: obese HEENT Reports TM's clear and moist mucous membranes Negative for trauma or tenderness Tympanic Membrane ED: Yes TM's clear Eyes PERRL and EOMs intact bilaterally General Eye ED: Negative for pale conjunctiva or scleral icterus Neck no lymphadenopathy, supple and no JVD Resp normal respiratory effort and clear to auscultation bilaterally Cardio regular rate, regular rhythm, S1 normal heart sound, S2 normal heart sound and no murmurs GI normal to inspection, nondistended, normoactive bowel sounds, soft to palpation and non-tender Back/Spine normal to inspection and no thoracic nor lumbar tenderness General Back: CVA tenderness right Extremity normal to inspection; Negative for no clubbing, cyanosis or edema General Extremety ED: Negative for edema or tenderness General Extremity: Negative for edema Neuro oriented x3 and no sensory deficits noted Sensorium / Orientation: alert Psych mental status grossly normal Skin no rashes or lesions noted and no wounds General Skin Exam: Negative for jaundice MDM MDM MDM Narrative Medical decision making narrative: Patient has no medical problems and no history of renal disease he was treated with IV Toradol and Zofran. CT of the abdomen pelvis without contrast was ordered. Blood work was obtained. Patient did not have much relief with Toradol. Is given 1 mg of Dilaudid. He still appears uncomfortable. We will call Dr. Villasenor who is on-call for urology for admission for pain management Lab Data Attestation: I reviewed the patient's lab results. Lab results narrative: Urine reveals hematuria without evidence of infection. Renal function is normal. Labs: Laboratory Results - last 24 hr 10/24/21 10/24/21 10/24/21 18:54 18:54 19:00 WBC 9.2 RBC 4.74 Hgb 13.6 Hct 40.5 MCV 85.4 MCH 28.7 MCHC 33.6 RDW Std Deviation 40.9 RDW Coeff of [place]ileen 13.1 Plt Count 241 MPV 9.4 Immature Gran % (Auto) 0.500 Neut % (Auto) 70.0 Lymph % (Auto) 17.2 L [place] % (Auto) 9.3 Eos % (Auto) 2.6 Baso % (Auto) 0.4 Absolute Neuts (auto) 6.4 Absolute Lymphs (auto) 1.58 Nucleated RBC % 0 Sodium 139 Potassium 4.0 Chloride 106 Carbon Dioxide 29.0 Anion Gap 4 L BUN 17 Creatinine 1.19 Estim Creat Clear Calc 74.98 Est GFR (MDRD) Af Amer 82 Est GFR (MDRD) Non-Af 68 BUN/Creatinine Ratio 14.3 Glucose 92 Calcium 9.3 Urine Color Yellow Urine Clarity Clear Urine pH 5.0 Ur Specific [place] 1.015 Urine Protein Negative Urine Glucose (UA) Normal Urine Ketones Negative Urine Occult Blood 250 H Urine Nitrite Negative Urine Bilirubin Negative Urine Urobilinogen Normal Ur Leukocyte Esterase Negative Urine RBC 25-50 SEEN Urine WBC 0 SEEN Ur Squamous Epith Cells 0-5 SEEN Urine Bacteria 0 SEEN Urine Mucus 0 SEEN Radiography Diagnostic Testing: Clinical Impression(s) from Imaging Studies Abdomen/Pelvis CT 10/24/21 20:03 CT reveals a 3.6 mm right UVJ stone with hydronephrosis. Discharge Plan Dx/Rx/DC Orders Clinical Impression: Hydronephrosis with urinary obstruction due to ureteral calculus, Deaf Disposition Disposition: Acute Care Hospital [facility] Discharge Date/Time: 10/24/21 22:31
[2021-10-24 20:52] VITALS: BP 153/91; PULSE 78; RESP 17; O2SAT 97
[2021-10-24] MEDS: HYDROmorphone 1 MG/ML Syringe IV (21:05)
[2021-10-24] MEDS: 0.9% Normal Saline 1,000 ML 125 ML IV (22:34)
[2021-10-24 23:00] VITALS: BMI 37.4
[2021-10-24 23:23] VITALS: BP 142/93; PULSE 64; RESP 18; TEMP 36.5; O2SAT 98
--- NOTE | 2021-10-24 23:36 | PCS.PANDOC ---
PANDEMIC DOCUMENTATION INITIATED: Date: 10/24/2021 Time: 2300
--- NOTE | 2021-10-25 | CALC_PTH ---
PATIENT: KWESI DALEY LOC: MS2 U#:[id number] AGE/SX: 51/M ROOM: [id number] RE10/24/[address]: Dr. Ozzie Villasenor MD : 1970 BED: 1 DIS: 10/25/2021 SPEC #: [id number] RECD: 10/27/21 08:26 STATUS: LISA WATERMAN #: [id number] MONTY: 10/25/21 00:[address]: Ozzie Villasenor DEPT: SURGICAL PATHOLOGY RECD BY: Meagan Dejesus ENTERED: 10/27/21 08:26 SP TYPE: Calculi OTHR DR: Dr. Yoan Ballard MD Tissues: CALCULI Procedures: Surgery Specimen Level I HEADER OPERATION: Not noted PRE-OP DIAGNOSIS: Calculi TISSUE SUBMITTED: Calculi GROSS DIAGNOSIS A fragment of stone, clinically urinary stone. LYLE:star 10/28/2021 COMMENT The calculus is submitted in its entirety for chemical stone analysis. The results from this study will be reported separately. GROSS DESCRIPTION Received without fixative labeled with the patient's name and designated urinary stone. The specimen consists of a fragment of brownish-black stone measuring 0.3 x 0.3 x 0.2 cm. The entire specimen is submitted for stone analysis. / SJ:star 10/27/2021 CPT: 40242
[2021-10-25] MEDS: HYDROmorphone 1 MG/ML Syringe IV (00:42)
[2021-10-25 05:00] VITALS: BP 119/72; PULSE 63; RESP 16; TEMP 36.6; O2SAT 96
[2021-10-25] MEDS: 0.9% Normal Saline 1,000 ML 125 ML IV (05:28)
--- NOTE | 2021-10-25 08:33 | PCM.HP.STD ---
HPI - General General Date of Admission: 10/24/21 HPI Narrative KWESI DALEY, is a 51 M who presents with a 3 mm stone in the distal right ureter he was having severe pain in the emergency room and the emergency room doctors recommended admission I told the ER docs and the patient very likely is going to pass the stone and no intervention will be necessary. We brought him in for observation and this morning he is feeling 100% better with no more severe pain just some mild bother. Very likely has passed a stone. [facility] Medical History (Updated 10/25/21 @ 08:[address] Ozzie Villasenor MD) Ureterolithiasis Home Medications allopurinol 300 mg PO DAILY 08/26/20 [History Last Taken 08/22/20] Allergy/AdvReac Type Severity Reaction Status Date / Time No Known Allergies Allergy Verified 10/24/21 16:44 Social History (Updated 10/24/21 @ 20:[address] Wellington Tenorio MD) household members: none Smoking Status: Never smoker substance use type: does not use ROS Constitutional Constitutional: Denies chills, fever(s) or malaise Eyes Eyes: Denies blurry vision or change in vision ENT HEENT: Reports none Cardiovascular Cardiovascular: Denies chest pain or palpitations Respiratory/Chest Respiratory/Chest: Denies cough or shortness of breath with exertion Gastrointestinal Gastrointestinal: Denies abdominal pain, constipation or diarrhea Musculoskeletal Musculoskeletal: Denies back pain, joint stiffness or joint swelling Integumentary Integumentary: Denies dry skin, jaundice, lesions or rash Neurologic Neurologic: Denies confusion, syncope or weakness Psychiatric Psychiatric: Reports none; Denies anxiety or depression Endocrine Endocrinology: Denies excessive sweating, fatigue or flushing Hematologic/Lymphatic Hematologic/Lymphatic: Denies anemia, easy bleeding or easy bruising Vital Signs Vital Signs Vital Signs: 10/24/21 16:39 10/24/21 20:52 10/24/21 23:23 Temperature 97.5 F L 97.7 F L Temperature Source Temporal Oral Pulse Rate 75 78 64 Respiratory Rate 16 17 18 Blood Pressure 165/112 H 153/91 H 142/93 H Blood Pressure Mean 129 111 109 Blood Pressure Source Monitor Blood Pressure Position Semi-Fowlers Blood Pressure Location Right Arm Pulse Ox 97 97 98 Oxygen Delivery Method Room Air Room Air Room Air 10/25/21 05:00 Temperature 97.8 F Temperature Source Oral Pulse Rate 63 Respiratory Rate 16 Blood Pressure 119/72 Blood Pressure Mean 87 Blood Pressure Source Monitor Blood Pressure Position Semi-Fowlers Blood Pressure Location Right Arm Pulse Ox 96 Oxygen Delivery Method Room Air Weight Weight: 120 kg Body Mass Index (BMI) 37.4 Physical Exam Const alert and oriented x3 General Appearance: cooperative HEENT normocephalic, head/scalp atraumatic, EAC's normal and TM's normal bilaterally Eyes PERRL and EOMs intact bilaterally Pupil: sluggish Neck no lymphadenopathy, supple and no JVD General: trachea midline Lymph Lymphatic: no lymphadenopathy noted, lymphedema and lymphadenopathy Resp normal respiratory effort, normal air movement and clear to auscultation bilaterally Cardio regular rate, regular rhythm and peripheral pulses 2+ throughout GI soft to palpation, non-tender and non-distended Extremity normal capillary refill and no clubbing, cyanosis or edema General Extremity: no tenderness to palpation of joints or extremities Skin no rashes or lesions noted General Skin Exam: turgor normal Lesions: no lesions Rashes: no rashes Neuro CN's II-XII intact bilaterally Speech: speech normal Motor Exam: strength 5/5 throughout; Negative for general weakness Psych thought process normal, cooperative and affect normal Appearance: appropriate Results Lab / Micro Data Result Diagrams: 10/24/21 18:54 10/24/21 18:54 Labs: Laboratory Results - last 24 hr 10/24/21 18:54: WBC 9.2, RBC 4.74, Hgb 13.6, Hct 40.5, MCV 85.4, MCH 28.7, MCHC 33.6, RDW Std Deviation 40.9, RDW Coeff of Aileen 13.1, Plt Count 241, MPV 9.4, Immature Gran % (Auto) 0.500, Neut % (Auto) 70.0, Lymph % (Auto) 17.2 L, [place] % (Auto) 9.3, Eos % (Auto) 2.6, Baso % (Auto) 0.4, Absolute Neuts (auto) 6.4, Absolute Lymphs (auto) 1.58, Nucleated RBC % 0 10/24/21 18:54: Sodium 139, Potassium 4.0, Chloride 106, Carbon Dioxide 29.0, Anion Gap 4 L, BUN 17, Creatinine 1.19, Estim Creat Clear Calc 74.98, Est GFR (MDRD) Af Amer 82, Est GFR (MDRD) Non-Af 68, BUN/Creatinine Ratio 14.3, Glucose 92, Calcium 9.3 10/24/21 19:00: Urine Color Yellow, Urine Clarity Clear, Urine pH 5.0, Ur Specific [place] 1.015, Urine Protein Negative, Urine Glucose (UA) Normal, Urine Ketones Negative, Urine Occult Blood 250 H, Urine Nitrite Negative, Urine Bilirubin Negative, Urine Urobilinogen Normal, Ur Leukocyte Esterase Negative, Urine RBC 25-50 SEEN, Urine WBC 0 SEEN, Ur Squamous Epith Cells 0-5 SEEN, Urine Bacteria 0 SEEN, Urine Mucus 0 SEEN Radiology Impression Abdomen/Pelvis CT 10/24/21 20:03 Assessment & Plan Assessment/Plan (1) Hydronephrosis with urinary obstruction due to ureteral calculus: PLAN: Admission overnight hospital for hydration pain management doing much better this morning we will discharge to home. Follow-up in the office.
[2021-10-25 08:46] VITALS: BP 132/89; PULSE 59; RESP 16; TEMP 36.3; O2SAT 98
--- NOTE | 2021-10-25 11:25 | NURSING ---
DR THOMAS NOTIFIED THAT PT PASSED STONE. SENT FOR ANALYSIS
== END 2021-10-25 11:17 | disposition home or self-care (01) ==
LOC: ED 21:53 → MS2 22:30
PROVIDERS: Admitting Provider Urology; Emergency Provider Emergency Medicine; PCP Family Medicine; Visit Provider Urology
DX: N13.2 Hydronephrosis with renal and ureteral calculous obstruction (principal); H91.90 Unspecified hearing loss, unspecified ear
CPT/HCPCS: 74176; 80048; 81001; 82360; 85025; 88300; 96361; 96374; 96375; 96376; 99218; 99282; J7030; G0378; J2405

== ENCOUNTER 2023-04-21 11:34 | Emergency (ER) | payer MEDICARE, SELFPAY ==
[2023-04-21 11:35] VITALS: BP 123/92; PULSE 79; RESP 16; TEMP 36.4; O2SAT 97; BMI 37.0
--- NOTE | 2023-04-21 13:39 | EDS_ITS ---
HPI History of Present Illness Chief Complaint: Lower Extremity Injury Informant: patient Narrative Narrative: Patient presenting with gradual onset 3 days ago of pain in the right knee and the left ankle, started together. No injury. He states the day before onset, he was playing golf without any difficulty and drinking some beer. He has a history of gout, he had it in the toes before and he has had a in the knee before, he states this feels the same but the pain is worse. He denies any fevers or chills. He is on no anticoagulants. He denies any other acute issues. 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 [facility] Medical History Ureterolithiasis Home Medications allopurinol 300 mg tablet 300 mg PO DAILY gout 08/26/20 [History Last Taken 08/22/20] hydrocodone-acetaminophen 5-325mg 5mg-325mg 1 tab PO Q4H PRN PRN Pain 2 days #10 TABLETS 04/21/23 [Rx Last Taken Unknown] prednisone 10 mg tablet 10 mg PO UD #38 tabs 04/21/23 [Rx Last Taken Unknown] Allergy/AdvReac Type Severity Reaction Status Date / Time No Known Allergies Allergy Verified 04/21/23 11:38 Social History household members: none Smoking Status: Never smoker substance use type: does not use ROS ROS ED Constitutional Constitutional ED: Denies chills or fever(s) Musculoskeletal Musculoskeletal: Reports extremity pain; Denies neck pain Integumentary Denies Abrasions, rash or wounds Neurologic Neurologic: Denies paresthesias or weakness EXAM Physical Exam Const Vital Signs: 04/21/23 11:35 Temperature 97.6 F L Temperature Source Temporal Pulse Rate 79 Respiratory Rate 16 Blood Pressure 123/92 H Blood Pressure Mean 102 Pulse Ox 97 Oxygen Delivery Method Room Air Positive well nourished and well developed General Appearance ED: well developed and NAD Neck full ROM and supple Back/Spine normal ROM and normal to inspection Extremity Extremity Narrative: Able to range all joints of lower extremities, but painful to range the right knee and the left ankle. Both are mildly erythematous, mild warmth compared with surrounding areas and contralateral joints, but no edema, and he can move fully. No effusion to the right knee. Neuro oriented x3, no focal motor deficits and no sensory deficits noted Sensorium / Orientation: alert Psych mental status grossly normal and thought process normal Skin no wounds Rashes: no rashes MDM MDM MDM Narrative Medical decision making narrative: Consistent with gout I do not suspect an acute septic arthritis here and I am comfortable treating him with prednisone and pain medication, we discussed reasons to return to the ER such as worsening despite prednisone, fevers, chills, or worsening in general. He is comfortable with that plan, he declines an offer for crutches. Discharge Plan Triage Chief Complaint: Lower Extremity Injury ED Provider: Manoj Sterling Dx/Rx/DC Orders Clinical Impression: Gouty arthritis Instructions: ED Gout, ED Gout Diet Prescriptions: New prednisone 10 mg tablet 10 mg PO UD Qty: 38 0RF Rx Instructions: Take 4 tablets daily for 5 days, then 3 daily for 3 days, then 2 daily for 3 days, then 1 a day for 3 days hydrocodone-acetaminophen [hydrocodone-acetaminophen] 5-325 mg tablet 1 tab PO Q4H PRN PRN (Reason: Pain) 2 Days Qty: 10 0RF No Action allopurinol 300 MG tablet 300 mg PO DAILY Primary Care Provider: Yoan Ballard Referrals: Yoan Ballard MD [Primary Care Provider] - 1 Week if not improving Activity Restrictions/Additional Instructions: Start prednisone prescription tomorrow since she received the first dose in the emergency department. The other pain medicine as needed and you can add ibuprofen to it. Discontinue your allopurinol until the prednisone is gone. Disposition Disposition: Home, Self Care
[2023-04-21] MEDS: predniSONE 20 MG Tablet 60 MG PO (14:14)
[2023-04-21 14:19] VITALS: BP 134/69; PULSE 71; RESP 15; O2SAT 97
== END 2023-04-21 14:19 | disposition home or self-care (01) ==
LOC: ED 13:50
PROVIDERS: Emergency Provider Emergency Medicine; PCP Family Medicine; Visit Provider Emergency Medicine
DX: M10.9 Gout, unspecified (principal); Z79.52 Long term (current) use of systemic steroids
CPT/HCPCS: 99283

== ENCOUNTER 2023-05-29 09:04 | Emergency (ER) | payer MEDICARE, SELFPAY ==
[2023-05-29 09:05] VITALS: BP 134/80; PULSE 64; RESP 14; TEMP 36.4; O2SAT 98; BMI 31.4
--- NOTE | 2023-05-29 09:16 | EDS_ITS ---
HPI History of Present Illness Chief Complaint: Upper Extremity Injury [facility] Medical History Ureterolithiasis Home Medications allopurinol 300 mg tablet 300 mg PO DAILY gout 08/26/20 [History Last Taken 08/22/20] hydrocodone-acetaminophen 5-325mg 5mg-325mg 1 tab PO Q6H PRN PRN Pain 3 days #10 TABLETS 04/21/23 [Rx Last Taken Unknown] prednisone 10 mg tablet 10 mg PO DAILY #38 tabs 04/21/23 [Rx Last Taken Unknown] sulfamethoxazole 800 mg-trimethoprim 160 mg tablet (Bactrim DS) 1 tab PO BID 7 days #14 tabs 05/29/23 [Rx Last Taken Unknown] Allergy/AdvReac Type Severity Reaction Status Date / Time No Known Allergies Allergy Verified 04/21/23 11:38 Social History household members: none Smoking Status: Never smoker substance use type: does not use EXAM Physical Exam Const Vital Signs: 05/29/23 09:05 Temperature 97.6 F L Temperature Source Temporal Pulse Rate 64 Respiratory Rate 14 Blood Pressure 134/80 H Blood Pressure Mean 98 Pulse Ox 98 Oxygen Delivery Method Room Air MDM MDM MDM Narrative Medical decision making narrative: HISTORY OF PRESENT ILLNESS: 53-year-old male here with elbow pain. States he fell onto his elbow 2 weeks ago. Since then has had increasing pain. REVIEW OF SYSTEMS: Pertinent positives: Elbow pain Pertinent negatives: numbness, weakness PHYSICAL EXAM: Nursing triage notes reviewed, Vital signs reviewed Constitutional: please see mdm HENT: MMM Eyes: Pupils equal round and reactive to light, Extraocular muscles intact Neck: No stridor, no JVD, full neck ROM Lungs: Clear to auscultation, No wheezing or rales. No increased work of breathing, no conversational dyspnea, no accessory muscle use, no nasal flaring. No respiratory distress noted Heart: Regular rate and rhythm, No murmurs, No rubs and No gallops, 2+ distal pulses (radial, femoral, posterior tibial) in all extremities Abdomen: Soft, there is no tenderness, rigidity, rebound or guarding, no obvious peritoneal signs, no palpable pulsatile abdominal masses, no auscultated abdominal bruit : No CVAT Extremities: Slight swelling of the olecranon bursa on the right, intact flexion extension of the right elbow, no obvious deformity Neuro: ntact 5/5 strength with ok sign (median), intact finger abduction (ulnar) intact wrist extension (radial n). Intact sensation in the radial, ulnar, and median nerve distributions. Skin: Erythema noted over right olecranon, no fluctuance or induration MEDICAL DECISION MAKING: Chief Complaint: Elbow pain External records reviewed: Prior imaging studies reviewed: X-ray left elbow obtained and showed monitor no changes, soft tissue swelling Factors affecting care: Gouty arthritis Social determinants of health: none History obtained from others: none Consults: none ALL IMAGES (IF OBTAINED) HAVE BEEN PERSONALLY REVIEWED AND INTERPRETED BY MYSELF. X-ray was read personally myself and showed no evidence of obvious fracture dislocation. MDM Narrative: Patient was hemodynamically stable, afebrile, nontoxic-appearing. Exam without obvious deformities. Right upper extremity neurovascularly intact I considered the following differential diagnosis: Fracture/dislocation, electron bursitis, cellulitis Given overlying redness I do not perform drainage of the patient's olecranon bur sa as this will increase his risk for bursa infection. We will give prophylactic antibiotics and obtain an x-ray. X-ray showed no evidence of obvious fracture dislocation by my read. Radiologist agrees my read. Patient given antibiotics to cover cellulitis. Told to return if symptoms change or worsen The patient and/or family, caregivers express understanding. The patient and/or family, caregivers agrees with the plan. Shared decision making: I will have a discussion with the patient and or visitors regarding risk/benefits of further testing or admission. They will be made aware of of the risk/benefits inherent in this decision they will be given the opportunity to voice understanding. Total critical care time today provided was at least 0 minutes. This excludes separately billable procedures. Critical care time (if documented) is secondary to the patient having high probability of clinically significant/life threatening deterioration in the patient's condition which required my urgent intervention. Discharge Plan Triage Chief Complaint: Upper Extremity Injury ED Provider: Faustino Daly Dx/Rx/DC Orders Clinical Impression: Bursitis, olecranon, Cellulitis of elbow Instructions: Cellulitis Dc Prescriptions: New sulfamethoxazole-trimethoprim [Bactrim DS] 800-160 mg tablet 1 tab PO BID 7 Days Qty: 14 0RF No Action allopurinol 300 MG tablet 300 mg PO DAILY hydrocodone-acetaminophen 5-325 mg tablet 1 tab PO Q6H PRN PRN (Reason: Pain) 3 Days Qty: 10 0RF prednisone 10 mg tablet 10 mg PO DAILY Qty: 38 0RF Rx Instructions: Take 4 tabs daily for 5 days, then 3 daily for 3 days, then 2 daily for 3 days, then 1 daily for 3 days Primary Care Provider: Yoan Ballard Referrals: Yoan Ballard MD [Primary Care Provider] - Activity Restrictions/Additional Instructions: Thank you for trusting us with your care today! Please take Tylenol (2 pills, 650 mg), ibuprofen (2 pills, 400 mg) every 6 hours as needed for pain and fever control. Please return to the emergency department if your symptoms change or worsen. Specifically develop vomiting, cannot take antibiotics. If you have decreased range of motion in your right elbow. Please follow with your primary care physician for further outpatient evaluation and management. Disposition Disposition: Home, Self Care
--- NOTE | 2023-05-29 10:17 | RAD_ITS ---
STUDY: X-RAY - LEFT ELBOW REASON FOR EXAM: Male, 53 years old. Persistent pain and swelling TECHNIQUE: 3 view(s) of the elbow. COMPARISON: None. FINDINGS: Normal visualized humerus, radius and ulna. There is degenerative arthrosis of the radiocapitellar and ulnotrochlear articulations. Persistent soft tissue swelling especially posterior to the proximal ulna there is persistent metallic foreign body likely responsible for the pain and soft tissue swelling. RAD/Elbow min 3 Views IMPRESSION: Persistent metallic foreign body noted posterior to the proximal ulna with associated soft tissue swelling. No fracture or suspicious osseous lesion Elbow joint arthrosis Electronically Signed: Nelson Montano MD at 11:30 EDT ,
[2023-05-29] MEDS: Smz/Tmp Ds Tablet 1 TABLET PO (10:54)
[2023-05-29] MEDS: Ibuprofen 200 MG Tablet 400 MG PO (10:54)
== END 2023-05-29 12:38 | disposition home or self-care (01) ==
PROVIDERS: Emergency Provider Emergency Medicine; PCP Family Medicine; Visit Provider Emergency Medicine
DX: M70.22 Olecranon bursitis, left elbow (principal); L03.112 Cellulitis of left axilla
CPT/HCPCS: 73080; 99283

== ENCOUNTER 2023-06-30 01:18 | Emergency (ER) | payer MEDICARE, SELFPAY ==
[2023-06-30 01:19] VITALS: BP 136/84; PULSE 86; RESP 20; TEMP 37.4; O2SAT 95; BMI 37.5
--- NOTE | 2023-06-30 01:43 | RAD_ITS ---
EXAM: XR RIGHT KNEE, 1 OR 2 VIEWS CLINICAL INDICATION: trauma, pain trauma, pain TECHNIQUE: Frontal and/or lateral views of the right knee. COMPARISON: No relevant prior studies available. FINDINGS: BONES/JOINTS: There is a small knee joint effusion. There is mild degenerative arthrosis of the patellofemoral articulation. There is mild degenerative arthrosis of the medial femorotibial articulation. No acute fracture. No subluxation. Normal alignment. No sclerotic or destructive changes observed. SOFT TISSUES: Unremarkable. No soft tissue swelling or gas. No radiopaque foreign body. RAD/Knee 1 or 2 Views IMPRESSION: 1. Small joint effusion. 2. Mild degenerative changes. 3. No demonstrated fracture, dislocation, or destructive osseous lesion. Electronically Signed: Bruce Hong MD at 3:29 EDT Reading Location ID and State: [facility] / [place] , Service support ,
--- NOTE | 2023-06-30 01:43 | EX.ED.DYSGE1 ---
HPI History of Present Illness Chief Complaint: Other, Pain/Inj Informant: patient Narrative Narrative: Presented complaining that he has gout again. Patient's been having problems with his left elbow and bursitis for about 2 months now. He states is not getting a lot better. But it is also not worse. He has now been having the right knee pain for about 3 days. He states it feels like gout. He states when he started with gout he got it in his toes but now he usually gets it in knees and other joints. He denies fevers or chills. He denies recent infections. He states he went to a camping trip/fishing trip up in [place]. He had 12 hours of driving and then 2 hours of boat ride. He did fall a couple times and hurt and landed on his knees. But it sounds like that is because his knee was already hurting. He states he is not supposed to have meat or any pork because of the gout. He states he only eats chicken. But up there they had no chicken and he had to eat meat and pork. He knew this was going to be a problem. It sounds like he does not have anything at home for pain right now. He also stopped gabapentin on Wednesday as he thought maybe that was worsening this also. Patient is also had recurrent problems with his knee. He said it swelled up from long drives in the past. [facility] Medical History (Updated 06/30/23 @ 05:[address] Cheng Allen MD) Gout Ureterolithiasis Home Medications allopurinol 300 mg tablet 300 mg PO DAILY gout 08/26/20 [History Last Taken 08/22/20] hydrocodone-acetaminophen 5-325mg 5mg-325mg 1 tab PO Q6H PRN PRN Pain 3 days #10 TABLETS 04/21/23 [Rx Last Taken Unknown] prednisone 10 mg tablet 10 mg PO DAILY #38 tabs 04/21/23 [Rx Last Taken Unknown] sulfamethoxazole 800 mg-trimethoprim 160 mg tablet (Bactrim DS) 1 tab PO BID 7 days #14 tabs 05/29/23 [Rx Last Taken Unknown] hydrocodone-acetaminophen 5-325mg 5mg-325mg 1 tab PO Q6H PRN PRN Pain 3 days #10 TABLETS 06/30/23 [Rx Last Taken Unknown] Allergy/AdvReac Type Severity Reaction Status Date / Time No Known Allergies Allergy Verified 06/30/23 01:19 Social History household members: none Smoking Status: Never smoker substance use type: does not use ROS ROS ED Constitutional Constitutional ED: Denies chills, fever(s), subjective or sweats Eyes Eyes: Denies blurry vision ENT ENT ED: Denies sore throat Cardiovascular Cardiovascular: Denies chest pain Respiratory/Chest Respiratory/Chest: Denies cough or dyspnea Gastrointestinal Gastrointestinal: Denies abdominal pain, diarrhea, nausea or vomiting Musculoskeletal Musculoskeletal: Reports arthralgias; Denies back pain, myalgias or neck pain Integumentary Denies abscess or rash Neurologic Neurologic: Denies headache(s), paresthesias or weakness Endocrine Endocrinology: Denies polydipsia or polyuria Hematologic/Lymphatic Hematologic/Lymphatic: Denies easy bleeding, easy bruising or lymphadenopathy Allergic/Immunologic Allergic/Immunologic ED: Denies urticaria EXAM Physical Exam Narrative Exam Narrative: Patient is awake alert sitting comfortably in bed. No acute distress. He reads lips very well. HEENT: Mucous membranes are moist. No dental tenderness or inflammation on exam. Eyes show no icterus. Neck is supple. He states sometimes he gets neck pain but he is not having it now. No tenderness or JVD. Heart is regular. I hear no murmur gallop or rub. Lungs are clear bilaterally. No pain with a deep breath. Saturations are normal at 95% on room air showing no hypoxia. Abdomen is soft completely nontender. There is no cervical thoracic or lumbar tenderness. Extremities do show olecranon bursitis on the left but is not red or warm. There is no leg swelling. No calf swelling. No tenderness along the deep venous system. He does have an effusion mild to moderate on the right. He does have some pain with motion. The knee is not at all red though. He states this is gout. He states he knows that is what this is. Const Vital Signs: 06/30/23 01:19 06/30/23 01:46 06/30/23 03:18 Temperature 99.3 F H Temperature Source Oral Pulse Rate 86 75 Respiratory Rate 20 H 15 Respiratory Effort Normal Non-Labored Respiratory Pattern Normal Blood Pressure 136/84 H 131/80 H Blood Pressure Mean 101 97 Pulse Ox 95 92 Oxygen Delivery Method Room Air Room Air MDM MDM MDM Narrative Medical decision making narrative: Patient presents with gout. He states this feels like his gout. Acts just like gout. He thinks this is due to eating red meat which she is not supposed to do and has caused a problem before. He has had no recent infections. He has no fever. I did discuss that it is hard to sort out what is gout and what could be an infected joint. We discussed tapping the knee but he would like to try meds for gout first. We will see if we can get him some medication to calm this down. I will do an x-ray of the knee because he did fall a couple times. We will reassess him. States his knee is not a lot better. I find out that he is also not taking the allopurinol now. I talked with him about options. Although I do think this is likely gout, he has an isolated sore joint. The left elbow is really going on 2 months now. It does not look infected at all. It is pure olecranon bursitis. Is not even red or warm. But the right knee does have a new effusion. It is slightly warm. Even though its not red. It is painful to move. I would like to attempt drawing fluid from this. I will also do some blood work. We will send off uric acid even though this is oftentimes normal during an acute gouty attack. I will get a more meds for pain. Procedure: Arthrocentesis right knee: I discussed risk benefits and indications for the procedure with the patient. The knee was straightened which does cause some discomfort. Good position on the superior lateral aspect was identified. The entire knee area was scrubbed several times. A total of 3 cc of 1% lidocaine were placed subcutaneously and directing toward the joint aspirating at all times. No lidocaine was placed in the joint. I then switched gloves. The knee was cleaned again. We had sterile gloves and equipment and field. An 18-gauge needle was passed into the joint. We got back yellow fluid with a little bit of blood present. But I can still see through the syringe. It did not look purulent or opaque but it does look a little bit inflamed. He tolerated this procedure well. Approximately 12 cc of fluid was taken out. This will be sent for further studies. Patient's shows no acute process including no elevation of platelets or white count. Electrolytes show no acute abnormality. His uric acid is elevated. I am awaiting to see if we get synovial fluid results. His history, exam, white count, lack of fever, elevated uric acid are all pointing to gout and that is what he says this is. See no fluid did not show crystals. But it also is no white cells. It was still slightly viscous. Gram stain was negative for bacteria. Patient has had problems with his knee many times before. He has had problems after a drive. He has never had a DVT. His pain is in the knee its not calf or leg. I do not think he needs ultrasound. I will get him at occasions for pain. I will get him the name of orthopedic physician for options of follow-up. He is would like to see somebody because his left elbow has had olecranon bursitis for 2 or more months. But is not worse today and is noninfected appearing. I do not think it needs to be drained acutely. Did discuss that if he develops fever, redness chills vomiting or any other symptoms he should return. We still have a culture pending and it is possible he can get called back. But I am not seeing indication for antibiotics or admission or surgery at this time. Lab Data Labs: Laboratory Results - last 24 hr 06/30/23 06/30/23 03:15 03:25 WBC 10.3 RBC 4.40 L Hgb 13.4 Hct 39.8 L MCV 90.5 MCH 30.5 MCHC 33.7 RDW Std Deviation 45.1 H RDW Coeff of Aileen 13.5 Plt Count 204 MPV 9.7 Immature Gran % (Auto) 0.400 Neut % (Auto) 76.7 H Lymph % (Auto) 13.3 L [place] % (Auto) 8.1 Eos % (Auto) 1.2 Baso % (Auto) 0.3 Absolute Neuts (auto) 7.9 H Absolute Lymphs (auto) 1.37 Nucleated RBC % 0 Sodium 136 Potassium 3.9 Chloride 104 Carbon Dioxide 29.0 Anion Gap 3 L BUN 13 Creatinine 1.02 Estim Creat Clear Calc 85.48 Est GFR (MDRD) Af Amer 98 Est GFR (MDRD) Non-Af 81 BUN/Creatinine Ratio 12.7 Glucose 130 H Uric Acid 8.7 H Calcium 8.9 Fluid Crystals NO CRYSTALS SEEN Fluid Crystal Source SYNOVIAL Fl Crystal Path Review Will follow Synovial Source KNEE Synovial Color Red Synovial Appearance Cloudy Synovial Viscosity Sl. Viscous Synovial WBC 0 Synovial RBC 124 H Synovial Tot Cell Ct TNP Synov Polynuclear WBCs 0.001 Synov Mononuclear WBCs 0.000 Synovial Polynuclear % 100.0 Synovial Mononuclear % 0.0 [address] Comment May follow Radiography Diagnostic Testing: Clinical Impression(s) from Imaging Studies Knee X-Ray 06/30/23 01:43 IMPRESSION: 1. Small joint effusion. 2. Mild degenerative changes. 3. No demonstrated fracture, dislocation, or destructive osseous lesion. Electronically Signed: Bruce Hong MD at 3:29 EDT , Discharge Plan Triage Chief Complaint: Other, Pain/Inj ED Provider: Cheng Allen Dx/Rx/DC Orders Clinical Impression: Effusion of knee joint right, Olecranon bursitis of left elbow, History of gout Instructions: ED Knee Effusion Prescriptions: New hydrocodone-acetaminophen [hydrocodone-acetaminophen] 5-325 mg tablet 1 tab PO Q6H PRN PRN (Reason: Pain) 3 Days Qty: 10 0RF No Action allopurinol 300 MG tablet 300 mg PO DAILY hydrocodone-acetaminophen 5-325 mg tablet 1 tab PO Q6H PRN PRN (Reason: Pain) 3 Days Qty: 10 0RF prednisone 10 mg tablet 10 mg PO DAILY Qty: 38 0RF Rx Instructions: Take 4 tabs daily for 5 days, then 3 daily for 3 days, then 2 daily for 3 days, then 1 daily for 3 days sulfamethoxazole-trimethoprim [Bactrim DS] 800-160 mg tablet 1 tab PO BID 7 Days Qty: 14 0RF Primary Care Provider: Yoan Ballard Referrals: Matt Jones MD [Med Staff - Active Staff] - 3-5 Days Yoan Ballard MD [Primary Care Provider] - As Needed Disposition Disposition: Home, Self Care
[2023-06-30] MEDS: oxyCODONE 5 MG Tablet PO (02:03)
[2023-06-30] MEDS: Colchicine 0.6 MG TABLET 1.2 MG PO (02:07)
[2023-06-30 03:18] VITALS: BP 131/80; PULSE 75; RESP 15; O2SAT 92
[2023-06-30 03:25] LABS: Absolute Lymphocyte Count 1.37 X10^3/uL (0.83-4.51); Absolute Neutrophil Count 7.9 X10^3/uL (2.0-7.7); Basophil# 0.03 X10^3/uL; Basophil% 0.3 % (0-1); Eosinophil# 0.12 X10^3/uL; Eosinophils% 1.2 % (0-5); Hematocrit 39.8 % (40-54); Hemoglobin 13.4 g/dL (13.0-16.5); Lymphocyte # 1.37 X10^3/ul (0.83-4.51); Lymphocyte % 13.3 % (19-41); Mean Corp Hgb Conc 33.7 g/dL (32-36); Mean Corpuscular Hgb 30.5 pg (27.0-32.0); Mean Corpuscular Volume 90.5 fL (80-94); Mean Platelet Vol. 9.7 fl (6.2-12.0); Monocyte# 0.83 X10^3/uL; Monocyte% 8.1 % (0-10); NRBC Flagged by Analyzer 0 % (0-5); Neutrophil % 76.7 % (47-70); Platelet Count 204 K/mm3 (150-450); RBC Distribution Width CV 13.5 % (11.6-14.6); RBC Distribution Width SD 45.1 fl (35.1-43.9); White Blood Count 10.3 K/mm3 (4.4-11.0)
[2023-06-30] MEDS: Morphine 4 MG/ML Syringe IV (03:25)
[2023-06-30] MEDS: Lidocaine 1% (20 ml mdv) 20 ML Vial 10 ML INFILT (03:25)
[2023-06-30 03:38] LABS: Pathologist Comment May follow
[2023-06-30 03:43] LABS: Anion Gap 3 (5-15); BUN 13 mg/dL (7-18); BUN/Creat Ratio 12.7 RATIO (10-20); Calcium,Total 8.9 mg/dL (8.5-10.1); Chloride 104 mmol/L (98-107); Creatinine, Serum 1.02 mg/dL (0.70-1.30); EST Glomerular Filtration Rate 81 mL/min (>60); Est Glom Filt Rate - Afr Amer 98 mL/min (>60); Estimated Creatinine Clearance 85.48 ml/min; Glucose 130 mg/dL (74-106); Potassium 3.9 mmol/L (3.5-5.1); Sodium Level 136 mmol/L (136-145); Uric Acid 8.7 mg/dL (3.5-7.2)
[2023-06-30 03:58] LABS: Synovial Fld Polynuclear WBC # 0.001 10^3/uL
[2023-06-30 04:04] LABS: Color / Synovial Fluid Red (Pale Yellow)
[2023-06-30 04:05] LABS: Source / Synovial Fluid KNEE
[2023-06-30 04:06] LABS: AUTO B FLUID DILUENT BKGD CT WBC <0.1 RBC <0.01 (W<.1,R<.01); Source- Body Fluid SYNOVIAL
[2023-06-30 04:08] LABS: Appearance /Synovial Fluid Cloudy (CLEAR); Viscosity / Synovial Fluid Sl. Viscous (HIGH)
[2023-06-30 05:13] LABS: Body Fluid QC Type(s) BF1Q
[2023-06-30 05:21] LABS: RBC /Synovial Fluid 124 /mm3 (0); WBC / Synovial Fluid 0 /mm3 (0)
[2023-06-30 05:29] LABS: CRYSTALS, BODY FLUID NO CRYSTALS SEEN
[2023-06-30 06:10] VITALS: BP 132/68; PULSE 79; RESP 18; O2SAT 97
[2023-07-01 09:56] LABS: Pathologist Review Reviewed
== END 2023-06-30 06:12 | disposition home or self-care (01) ==
PROVIDERS: Emergency Provider Emergency Medicine; PCP Family Medicine; Visit Provider Emergency Medicine
DX: M25.461 Effusion, right knee (principal); M70.32 Other bursitis of elbow, left elbow; Z87.39 Personal history of other diseases of the musculoskeletal system and connective tissue
CPT/HCPCS: 20610; 73560; 80048; 84550; 85025; 87070; 87075; 87205; 89050; 89051; 89060; 96374; 99284; A4216

== ENCOUNTER → 2023-08-18 | Outpatient (CLI) | payer MEDICARE, SELFPAY ==
--- NOTE | 2023-08-18 11:52 | EKG12_ITS ---
Test Reason : PRE-OP Blood Pressure : / mmHG Vent. Rate : 066 BPM Atrial Rate : 066 BPM P-R Int : 166 ms QRS Dur : 086 ms QT Int : 386 ms P-R-T Axes : 042 021 036 degrees QTc Int : 404 ms Normal sinus rhythm Normal ECG Confirmed by EDWARD DECKER, CONOR ([id number]), online editor HARMAN THAYER ([id number]) on 08/23/2023 8:36:45 AM Referred By: Osmin Quintero Confirmed By:LUCILA LEON MD
[2023-08-18 13:44] LABS: Absolute Lymphocyte Count 1.54 X10^3/uL (0.83-4.51); Absolute Neutrophil Count 7.2 X10^3/uL (2.0-7.7); Basophil# 0.03 X10^3/uL; Basophil% 0.3 % (0-1); Eosinophil# 0.17 X10^3/uL; Eosinophils% 1.7 % (0-5); Hematocrit 39.7 % (40-54); Hemoglobin 12.9 g/dL (13.0-16.5); Lymphocyte # 1.54 X10^3/ul (0.83-4.51); Lymphocyte % 15.7 % (19-41); Mean Corp Hgb Conc 32.5 g/dL (32-36); Mean Corpuscular Hgb 29.4 pg (27.0-32.0); Mean Corpuscular Volume 90.4 fL (80-94); Mean Platelet Vol. 9.9 fl (6.2-12.0); Monocyte# 0.81 X10^3/uL; Monocyte% 8.3 % (0-10); NRBC Flagged by Analyzer 0 % (0-5); Neutrophil # 7.23 X10^3/uL (2.7-7.7); Neutrophil % 73.7 % (47-70); Platelet Count 200 K/mm3 (150-450); RBC Distribution Width CV 13.8 % (11.6-14.6); RBC Distribution Width SD 46.5 fl (35.1-43.9); Red Blood Count 4.39 M/mm3 (4.6-6.2); White Blood Count 9.8 K/mm3 (4.4-11.0)
[2023-08-18 14:02] LABS: Anion Gap 4 (5-15); BUN 16 mg/dL (7-18); BUN/Creat Ratio 15.7 RATIO (10-20); Chloride 105 mmol/L (98-107); Creatinine, Serum 1.02 mg/dL (0.70-1.30); EST Glomerular Filtration Rate 81 mL/min (>60); Est Glom Filt Rate - Afr Amer 98 mL/min (>60); Glucose 81 mg/dL (74-106); Potassium 3.8 mmol/L (3.5-5.1); Sodium Level 138 mmol/L (136-145)
== END | disposition home or self-care (01) ==
LOC: PSN 11:51
PROVIDERS: PCP Family Medicine; Referring Provider Student in an Organized Health Care Education/Training Program; Visit Provider Student in an Organized Health Care Education/Training Program
DX: Z01.818 Encounter for other preprocedural examination (principal); Z01.810 Encounter for preprocedural cardiovascular examination
CPT/HCPCS: 36415; 80048; 85025; 93005

== ENCOUNTER 2024-10-12 22:25 | Emergency (ER) | payer MEDICARE, SELFPAY ==
[2024-10-12 22:26] VITALS: BP 137/106; PULSE 97; RESP 18; TEMP 36.1; O2SAT 100
--- NOTE | 2024-10-12 22:40 | EX.ED.DYSGE1 ---
HPI History of Present Illness Chief Complaint: Lower Extremity Injury [facility] Medical History Gout Ureterolithiasis Home Medications ?Medication ?Instructions ?Recorded ?Last Taken ?Type tamsulosin 0.4 mg capsule 0.4 mg PO QHS 10/12/24 Unknown History tramadol 50 mg tablet 50 mg PO BID PRN PRN pain 10/12/24 Unknown History Allergy/AdvReac Type Severity Reaction Status Date / Time No Known Allergies Allergy Verified 10/12/24 22:26 Social History household members: none Smoking Status: Never smoker substance use type: does not use EXAM Physical Exam Const Vital Signs: 10/12/24 22:26 Temperature 97 F L Temperature Source Temporal Pulse Rate 97 Respiratory Rate 18 Blood Pressure 137/106 H Blood Pressure Mean 116 Pulse Ox 100 Oxygen Delivery Method Room Air MDM MDM MDM Narrative Medical decision making narrative: HISTORY OF PRESENT ILLNESS: 54-year-old male presents with fall 2 days ago. Notes he landed left knee and hit his head. Denies loss of consciousness or vomiting. No severe left knee pain is worse with movement and palpation. Denies history of surgery to the left knee. REVIEW OF SYSTEMS: Pertinent positives: Left knee pain, head trauma Pertinent negatives: Loss of consciousness, vomiting PHYSICAL EXAM: Nursing triage notes reviewed, Vital signs reviewed Primary Survey Airway: Intact Breathing: Bilateral breath sounds Circulation: Palpable bilateral femorals, Palpable bilateral radial, Palpable bilateral DP and Palpable bilateral PT Disability / Spine precautions GCS Score: Eye Openin Verbal Response: 5 Motor Response: 6 Secondary Survey Constitutional: Please see MDM Head: Atraumatic, Midface stable, NO jaw malocclusion, No Cephalohematoma, and No Lacerations noted Eye: Pupils equal round and reactive to light, Extraocular muscles intact and No periorbital ecchymosis or stepoff, no evidence of entrapment ENT: Oropharynx clear, no lacerations, no hemotympanum, no raccoon eyes or purdy sign Cervical spine / Neck: No cervical spine bony tenderness, crepitance, or stepoff deformity Trachea midline Lungs: Clear to auscultation, No asymmetric rise and No crepitus, no flail chest Cardiac: Regular rate and rhythm and No murmurs Abdomen: Soft, Nontender and No rebound Pelvis: Pelvis stable to compression : No evidence of genital injury Back: No midline bony tenderness to thoracic/lumbar/sacral spines Neuro: At baseline, intact strength and sensation in bilateral upper and lower extremities. 2+ patellar reflexes bilaterally. Extremities: NO gross Deformities, palpable effusion noted to left knee, swelling noted, decreased range of motion secondary to pain, but intact flexion extension with passive range of motion. Quadriceps tendon complex intact, compartments are soft. Psych: Normal affect Nursing triage notes reviewed, Vital signs reviewed MEDICAL DECISION MAKING: Chief Complaint: Left knee pain External records reviewed: Reviewed prior imaging Factors affecting care: none Social determinants of health: none History obtained from others: none Consults: none MDM Narrative: The patient was initially hemodynamically stable, afebrile and nontoxic-appearing. Exam with left knee pain, TTP, palpable effusion, decrease ROM. I considered the following differential diagnosis: ICH, knee fracture, dislocation, contusion ALL IMAGES (IF OBTAINED) HAVE BEEN PERSONALLY REVIEWED AND INTERPRETED BY MYSELF. X-ray of the left knee was read and reviewed personally myself showed no fracture or dislocation. Radiologist agreed my interpretation CT scan head was negative for ICH bleed Tertiary trauma exam without new injury. The patient is appropriate discharge home with 10 ibuprofen instructions. The patient and/or family, caregivers express understanding. The patient and/or family, caregivers agrees with the plan. Shared decision making: I will have a discussion with the patient and or visitors regarding risk/benefits of further testing or admission. They will be made aware of of the risk/benefits inherent in this decision they will be given the opportunity to voice understanding. Total critical care time today provided was at least 0 minutes. This excludes separately billable procedures. Critical care time (if documented) is secondary to the patient having high probability of clinically significant/life threatening deterioration in the patient's condition which required my urgent intervention. Impression: 1. Acute head contusion 2. Acute left knee contusion Dispo: Discharge home This note was generated with [employer] dictation software. It may contain incorrect words, spelling, and punctuation that were not noted in review of the chart prior to signing. Radiography Diagnostic Testing: Clinical Impression(s) from Imaging Studies Brain CT 10/12/24 22:44 IMPRESSION: No acute abnormality. Sinus disease. Bilateral mastoid disease. Electronically Signed: Kim Hodges MD at 23:26 EST , Knee X-Ray 10/12/24 22:50 IMPRESSION: No evidence of fracture. Small joint effusion. Electronically Signed: Kim Hodges MD at 23:23 EST , Discharge Plan Triage Chief Complaint: Lower Extremity Injury ED Provider: Faustino Daly Dx/Rx/DC Orders Instructions: ED Knee Effusion, ED Knee Sprain Prescriptions: No Action tramadol 50 mg tablet 50 mg PO BID PRN PRN (Reason: pain) tamsulosin 0.4 mg capsule 0.4 mg PO QHS Primary Care Provider: Yoan Ballard Referrals: Homero Aragon DO [Med Staff - Active Staff] - Yoan Ballard MD [Primary Care Provider] - Activity Restrictions/Additional Instructions: Thank you for trusting us with your care today! Please take Tylenol (2 pills, 650 mg), ibuprofen (2 pills, 400 mg) every 6 hours as needed for pain and fever control. Please return to the emergency department if your symptoms change or worsen. Please follow with your primary care physician for further outpatient evaluation and management. Print Language: Sammarinese Disposition Disposition: Home, Self Care Discharge Date/Time: 10/12/24 23:53
--- NOTE | 2024-10-12 22:44 | CT_ITS ---
INDICATION: head trauma EXAMINATION: CT BRAIN - CT Head or Brain W/O Contrast Injection TECHNIQUE: Multiple axial images were obtained of the head without intravenous contrast. The protocol utilizes one or more of the following dose reduction techniques: automated exposure control, adjustment of mA and/or kV according to patient size,and/or use of iterative reconstruction technique. IV Contrast dosage and agent: None. RADIATION DOSAGE (If Supplied By Facility): CTDIvol = ( 44.99 ) mGy, DLP = ( 863.60 ) mGycm COMPARISON: No relevant prior comparison study available FINDINGS: BRAIN: No acute bleed. No edema. Mcdonald-white matter differentiation is maintained. VENTRICLES AND SULCI: Not dilated. EXTRA-AXIAL: No hemorrhage, fluid collection, or mass. CALVARIUM / SKULL BASE: Unremarkable. FACE/SINUSES: Mucosal thickening in the maxillary and sphenoid sinuses. The mastoid air cells are minimally opacified bilaterally. SOFT TISSUES: Unremarkable. CT/Brain/Head without Contrast IMPRESSION: No acute abnormality. Sinus disease. Bilateral mastoid disease. Electronically Signed: Kim Hodges MD at 23:26 [facility] ,
--- NOTE | 2024-10-12 22:50 | RAD_ITS ---
INDICATION: pain after fall FELL ON WEDNESDAY C/O SEVERE PAIN TO LT KNEE EXAMINATION/TECHNIQUE: X-RAY - LEFT XR Knee 3 Views 4 VIEWS COMPARISON: No relevant prior comparison study available FINDINGS: BONES: No fracture demonstrated. Joint space narrowing with subchondral sclerosis and osteophytes at all 3 compartments. JOINTS: No dislocation. SOFT TISSUES: Small joint effusion. RAD/Knee 3 Views IMPRESSION: No evidence of fracture. Small joint effusion. Electronically Signed: Kim Hodges MD at 23:23 EST ,
[2024-10-12 23:04] VITALS: BMI 38.2
== END 2024-10-12 23:53 | disposition home or self-care (01) ==
PROVIDERS: Emergency Provider Emergency Medicine; PCP Family Medicine; Visit Provider Emergency Medicine
DX: S80.02XA Contusion of left knee, initial encounter (principal); M25.462 Effusion, left knee; S00.93XA Contusion of unspecified part of head, initial encounter; W19.XXXA Unspecified fall, initial encounter
CPT/HCPCS: 70450; 73562; 99282

== ENCOUNTER 2024-12-22 11:49 | Emergency (ER) | payer MEDICARE, SELFPAY ==
[2024-12-22 11:50] VITALS: BP 138/88; PULSE 60; RESP 16; TEMP 35.9; O2SAT 97; BMI 29.4
[2024-12-22] MEDS: Lidocaine 1% (20 ml mdv) 20 ML Vial INFILT (13:38)
[2024-12-22] MEDS: Diphth,Pertuss(Acell),Tet Vac 0.5 ML Vial IM (13:38)
--- NOTE | 2024-12-22 15:32 | EX.ED.GENINJ ---
HPI History of Present Illness Chief Complaint: Laceration Narrative Narrative: Chief complaint and HPI: Laceration. 54-year-old male with past medical history of deafness, chronic neuropathy presents for evaluation of laceration to the right index finger. Patient states he was at home fixing a car when he accidentally cut his finger on metal. He states at baseline he has some mild numbness in that finger but denies any worsening numbness. He is not up-to-date on tetanus. He denies injury elsewhere. Review of systems: See HPI Medications: As listed on the chart Allergies: As listed on the chart PFSH: Per chart Vital signs: As listed on the chart. Reviewed. Physical exam: Gen: Alert and oriented, NAD Head: Normocephalic, atraumatic Eyes: No sclera icterus, conjunctiva clear ENT: Moist mucous membranes CV: Regular rate Resp: Nonlabored respiration Musc: Full range of motion of the right upper extremity including the wrist, hand, fingers, thumb. No tenderness to palpation of the wrist, hand, fingers, thumb. Patient has a 2.5 cm laceration to the dorsal aspect of the right index finger just distal to the PIP joint, good capillary refill, sensation intact, radial and ulnar pulse +2 Skin: Warm, dry Neuro: Alert, oriented, grossly intact Psych: Cooperative, appropriate mood and affect [facility] Medical History (Updated 12/22/24 @ 14:[address] Roberto Aguiar DO) Gout Ureterolithiasis Home Medications ?Medication ?Instructions ?Recorded ?Last Taken ?Type tamsulosin 0.4 mg capsule 0.4 mg PO QHS 10/12/24 Unknown History tramadol 50 mg tablet 50 mg PO BID PRN PRN pain 10/12/24 Unknown History Allergy/AdvReac Type Severity Reaction Status Date / Time No Known Allergies Allergy Verified 12/22/24 11:52 Social History household members: none Smoking Status: Never smoker substance use type: does not use EXAM Physical Exam Const Vital Signs: 12/22/24 11:50 Temperature 96.6 F L Temperature Source Temporal Pulse Rate 60 Respiratory Rate 16 Blood Pressure 138/88 H Blood Pressure Mean 104 Pulse Ox 97 Oxygen Delivery Method Room Air MDM MDM MDM Narrative Medical decision making narrative: 54-year-old male with past medical history of deafness, chronic neuropathy presents for evaluation of laceration to the right index finger. See physical exam finding. Laceration will need repaired. Tetanus was updated. Patient has no tenderness to palpation of the finger and denies any significant injury other than the laceration therefore I do not think any x-rays are needed. Laceration was repaired and patient tolerated this well. Patient discharged home. Was educated sutures need to be removed in 7 days. Follow-up with PCP. Monitor for signs of infection. He confirmed understanding. Patient discharged home. Laceration Repair Indication: Laceration Location: Right index finger laceration Consent: Risks, benefits, and alternatives discussed with patient and consent obtained Procedure: A time out was performed. The area was prepped and draped in the usual sterile fashion. Local anesthesia was achieved using 1% Lidocaine. The wound was copiously irrigated and cleaned. 7 sutures were placed using 4-0 Ethilon in an interrupted fashion. The estimated blood loss was minimal. A dressing was applied to the area with Bacitracin. The patient tolerated the procedure well without complications. Foreign Material: None Debridement: None Follow-up: Anticipatory guidance, as well as standard post-procedure care, was explained. Return precautions are given. Impression: 1. Right index finger laceration, status post suture repair 2. Updated tetanus Discharge Plan Triage Chief Complaint: Laceration ED Provider: Roberto Aguiar Dx/Rx/DC Orders Clinical Impression: Laceration of right index finger Instructions: ED Laceration, All Closures Prescriptions: No Action tramadol 50 mg tablet 50 mg PO BID PRN PRN (Reason: pain) tamsulosin 0.4 mg capsule 0.4 mg PO QHS Primary Care Provider: Yoan Ballard Referrals: Yoan Ballard MD [Primary Care Provider] - 3-5 Days Activity Restrictions/Additional Instructions: Sutures need to be removed in 7 days. Monitor for signs of infection. Okay to shower in 24 hours. No hot tubs, lakes, [place], swimming pools, oceans until fully healed. Follow-up with primary care physician. Print Language: Polish Disposition Disposition: Home, Self Care Discharge Date/Time: 12/22/24 14:56
== END 2024-12-22 14:56 | disposition home or self-care (01) ==
PROVIDERS: Emergency Provider Surgery; PCP Family Medicine; Visit Provider Surgery
DX: S61.210A Laceration without foreign body of right index finger without damage to nail, initial encounter (principal); H91.90 Unspecified hearing loss, unspecified ear; W26.8XXA Contact with other sharp object(s), not elsewhere classified, initial encounter; Z23 Encounter for immunization
CPT/HCPCS: 12001; 90471; 90715; 99283

== ENCOUNTER 2024-12-30 13:18 | Emergency (ER) | payer MEDICARE, SELFPAY ==
[2024-12-30 13:18] VITALS: BP 132/8; PULSE 78; RESP 14; TEMP 36.6; O2SAT 98; BMI 37.3
--- NOTE | 2024-12-30 13:43 | EX.ED.UPPERE ---
HPI History of Present Illness Chief Complaint: Wound Informant: patient Narrative Narrative: 54-year-old male presents for evaluation of a wound on his right index finger. He had sustained a laceration and was seen here 8 days ago and had it repaired, he states that yesterday the whole thing popped open at 1 point when he bent his finger, and he thinks one of the sutures fell out. He denies any fevers or chills or pain, he states the area is a little swollen. He has had no major discharge. [facility] Medical History Gout Ureterolithiasis Home Medications ?Medication ?Instructions ?Recorded ?Last Taken ?Type tamsulosin 0.4 mg capsule 0.4 mg PO QHS 10/12/24 Unknown History tramadol 50 mg tablet 50 mg PO BID PRN PRN pain 10/12/24 Unknown History Allergy/AdvReac Type Severity Reaction Status Date / Time No Known Allergies Allergy Verified 12/30/24 13:19 Social History household members: none Smoking Status: Never smoker substance use type: does not use ROS ROS ED Constitutional Constitutional ED: Denies chills or fever(s) Musculoskeletal Musculoskeletal: Denies extremity pain Integumentary Reports as per HPI and wounds EXAM Physical Exam Const Vital Signs: 12/30/24 13:18 Temperature 98 F Temperature Source Temporal Pulse Rate 78 Respiratory Rate 14 Blood Pressure 132/8 H Blood Pressure Mean 49 Pulse Ox 98 Oxygen Delivery Method Room Air Positive well nourished and well developed General Appearance ED: well developed and NAD HEENT Reports moist mucous membranes normocephalic and atraumatic Eyes PERRL and EOMs intact bilaterally Resp normal respiratory effort Extremity Extremity Narrative: Right index finger has a completely dehisced laceration just distal dorsal PIPJ, there is some very mild seepage from the wound, it is not purulent, there is no bleeding. There is some mild hyperemia just distal to it but not proximal. None of this is tender. He has full range of the PIPJ without any difficulty and there is no lymphangitis. There are 5 sutures present. Neuro oriented x3, CN's II-XII intact bilaterally, moves all extremities and no focal motor deficits Psych mental status grossly normal MDM MDM MDM Narrative Medical decision making narrative: This laceration appears to be completely dehisced, it has some hyperemia which may be early infection versus inflammation. It is not obviously infected but I am concerned that it could be getting infected since now it is open. I removed the sutures that were present, to remove all foreign material. There is nothing deep within the wound. The patient states that there were 6 sutures placed, and I removed only 5. He thinks 1 was lost and fell out prior to coming here. I do not think he needs oral/systemic antibiotics, but I think it should be carefully treated with topical antibiotics, given a volar splint to prevent flexion and allow this to heal by secondary intent, so I had nursing clean it up and apply a dressing with bacitracin, and I supervised placing of an AlumaFoam volar finger splint. Neurovascular intact distally after placement, and I will have him follow-up with plastics as an outpatient. He is comfortable with that plan. Procedures Upper Extremity Splints Upper Extremity Splint: Alumifoam Splint Fabrication: Fabricated Location: Right (Index finger, NVID after placement) Other Procedures Procedure(s): Suture removal right index finger: #5 simple interrupted nylon sutures were removed after prepping with isopropanol. No complications, tolerated well by the patient without pain. Discharge Plan Triage Chief Complaint: Wound ED Provider: Manoj Sterling Dx/Rx/DC Orders Clinical Impression: Dehiscence of laceration wound of finger Instructions: Wound Dehiscence Prescriptions: No Action tramadol 50 mg tablet 50 mg PO BID PRN PRN (Reason: pain) tamsulosin 0.4 mg capsule 0.4 mg PO QHS Primary Care Provider: Yoan Ballard Referrals: Delvin Hutchins MD [Med Staff - Active Staff] - 3-5 Days if not improving Activity Restrictions/Additional Instructions: Use antibiotic ointment at the wound site with each dressing and change once or twice daily. Try to avoid too much bending of the finger, use the splint to prevent this. Print Language: Citizen Of [place] Disposition Disposition: Home, Self Care
[2024-12-30 14:02] VITALS: BP 132/80; PULSE 78; RESP 14; TEMP 36.6; O2SAT 98
== END 2024-12-30 14:03 | disposition home or self-care (01) ==
PROVIDERS: Emergency Provider Emergency Medicine; PCP Family Medicine; Visit Provider Emergency Medicine
DX: T81.33XA Disruption of traumatic injury wound repair, initial encounter (principal)
CPT/HCPCS: 12020; 99282

== ENCOUNTER 2025-02-06 07:50 | Emergency (ER) | payer MEDICARE, SELFPAY ==
[2025-02-06 07:50] VITALS: BP 111/82; PULSE 89; RESP 14; TEMP 35.6; O2SAT 98; BMI 35.0
--- NOTE | 2025-02-06 08:32 | ED.VIS.LOWEX ---
HPI History of Present Illness Chief Complaint: Lower Extremity Injury Informant: patient and spouse/S.O. 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 54-year-old male presenting to the emergency room with right knee pain. Patient states he has a history of gout. He states that he has been experiencing low back pain and has been receiving back injections to destroyed the nerve with Dr. Saez. The back has been feeling significantly better. Shortly after the last injection about 2 weeks ago he developed swelling redness and pain of the right knee. His primary care doctor put him on tapering prednisone. He states that the knee is still painful especially to bear weight and seems to radiate up and down the leg. He notes some redness to the back of the leg. He states he called his primary care doctor who recommended that he come to the emergency or urgent care. He states he went to urgent care and was referred to emergency. He states that he had not had any gout symptoms for several months but has not returned. He denies any fever. He denies any muscle weakness. He notes skin sensitivity. He states he has been taking anti-inflammatories with minimal relief of the pain. [facility] Medical History Gout Ureterolithiasis Home Medications ?Medication ?Instructions ?Recorded ?Last Taken ?Type tamsulosin 0.4 mg capsule 0.4 mg PO QHS 10/12/24 Unknown History tramadol 50 mg tablet 50 mg PO BID PRN PRN pain 10/12/24 Unknown History hydrocodone-acetaminophen 5-325mg 1 tab PO Q6H PRN PRN Pain 3 days 02/06/25 Unknown Rx 5mg-325mg #12 TABLETS ketorolac 10 mg tablet 10 mg PO Q8H PRN pain #15 tabs 02/06/25 Unknown Rx Allergy/AdvReac Type Severity Reaction Status Date / Time No Known Allergies Allergy Verified 02/06/25 07:50 Social History household members: none Smoking Status: Never smoker substance use type: does not use ROS ROS ED Constitutional Constitutional ED: Denies chills, fever(s) or weight loss Eyes Eyes: Denies change in vision or diplopia ENT ENT ED: Denies ear pain, rhinorrhea or sore throat Cardiovascular Cardiovascular: Denies chest pain, orthopnea, palpitations or racing heartbeat Respiratory/Chest Respiratory/Chest: Denies cough, dyspnea or orthopnea Gastrointestinal Gastrointestinal: Denies abdominal pain, diarrhea, nausea or vomiting Genitourinary Genitourinary ED: Denies dysuria, hematuria or urinary frequency Musculoskeletal Musculoskeletal: Reports other Details: See history of present illness ; Denies arthralgias or myalgias Integumentary Reports rash; Denies abscess Neurologic Neurologic: Denies headache(s), paresthesias or weakness Psychiatric Psychiatric: Denies anxiety, depression, suicidal ideation or suicidal thoughts Endocrine Endocrinology: Denies polydipsia, polyphagia or polyuria Allergic/Immunologic Allergic/Immunologic ED: Denies mouth swelling, tongue swelling or urticaria EXAM Physical Exam Const Vital Signs: 02/06/25 07:50 02/06/25 09:50 02/06/25 10:56 Temperature 96.1 F L 96.1 F L Temperature Source Temporal Pulse Rate 89 71 71 Respiratory Rate 14 15 15 Blood Pressure 111/82 H 111/82 H Blood Pressure Mean 91 91 Pulse Ox 98 96 96 Oxygen Delivery Method Room Air Room Air Positive well nourished and well developed General Appearance ED: well developed and NAD HEENT Reports normocephalic, head/scalp atraumatic and moist mucous membranes Eyes PERRL and EOMs intact bilaterally Neck no lymphadenopathy, supple and no JVD Resp normal respiratory effort and clear to auscultation bilaterally Cardio regular rate, regular rhythm and no murmurs GI normal to inspection, nondistended, normoactive bowel sounds and non-tender Palpation: soft Back/Spine no CVA tenderness and normal ROM Extremity Extremity Narrative: Patient has an antalgic gait. The right knee demonstrates some mild warmth compared to the left. There is mild swelling compared to the left. He notes sensitivity of the skin to touch. I do not appreciate any significant erythema of the knee. There is some mild erythema of the popliteal fossa extending over onto the medial thigh but I also see this change on the left leg. I do not appreciate any lymphangitic streaking. He is able to bend the knee. I do not appreciate any breaks in the skin. Distally he appears neurovascularly intact. I do not appreciate any palpable cords. There are few varicose veins. General Extremety ED: Negative for edema General Extremity: Negative for edema Neuro oriented x3 and CN's II-XII intact bilaterally Sensorium / Orientation: alert Motor Exam: strength 5/5 throughout Deep Tendon Reflexes: Rt Patellar (L4): 2+, Lt Patellar (L4): 2+, Rt Ankle (S1): 2+ and Lt Ankle (S1): 2+ Deep Tendon Reflexes Back: Rt Patellar (L4): 2+, Lt Patellar (L4): 2+, Rt Ankle (S1): 2+ and Lt Ankle (S1): 2+ Psych mental status grossly normal Mood & Affect: Negative for depressed or tearful Skin no rashes or lesions noted and no wounds MDM MDM MDM Narrative Medical decision making narrative: Differential diagnosis includes gout pseudogout allergic reaction lumbar radiculopathy joint infection cellulitis White count is 12 with 79.6 neutrophils. ESR is 22 CRP is 18.6 glucose 115. My depend interpretation of the plain films of the right knee is small joint effusion. Patient was given a dose of Toradol. Spoke with the patient and reviewed the above workup. I do not feel strongly that this is an infected joint. I prescribed some Toradol both for pain but also from a gout standpoint. I can write for some Reading. I would have him follow-up with orthopedics as well as primary care. Patient is comfortable with this plan History & Record Review Discussion w/independent historian: Patient and Family Additional record(s) reviewed:: Prior ED visit and Prior labs Lab Data Attestation: I reviewed the patient's lab results. Labs: Laboratory Results - last 24 hr 02/06/25 08:40 WBC 12.0 H RBC 4.90 Hgb 14.2 Hct 41.9 MCV 85.5 MCH 29.0 MCHC 33.9 RDW Std Deviation 41.9 RDW Coeff of Aileen 13.4 Plt Count 282 MPV 9.5 Immature Gran % (Auto) 1.000 H Neut % (Auto) 79.6 H Lymph % (Auto) 12.5 L [place] % (Auto) 5.2 Eos % (Auto) 1.3 Baso % (Auto) 0.4 Absolute Neuts (auto) 9.6 H Absolute Lymphs (auto) 1.50 Nucleated RBC % 0 ESR 22 H Sodium 137 Potassium 4.6 Chloride 102 Carbon Dioxide 23.9 Anion Gap 11 BUN 20 H Creatinine 0.97 Estim Creat Clear Calc 110.49 Est GFR (MDRD) Non-Af 93 BUN/Creatinine Ratio 20.5 H Glucose 115 H Calcium 9.3 C-React Prot Ext Range 18.60 H Radiography Diagnostic Testing: Clinical Impression(s) from Imaging Studies Knee X-Ray 02/06/25 09:05 IMPRESSION: 1. No visible acute displaced fracture. 2. Question a trace joint effusion, decreased from 06/30/2023. 3. Additional description as above. Reading Location: [id number] Discharge Plan Triage Chief Complaint: Lower Extremity Injury ED Provider: Philip Ramirez Dx/Rx/DC Orders Clinical Impression: Gout, Acute pain of right knee Instructions: ED Gout, ED Gout Diet Prescriptions: New hydrocodone-acetaminophen 5-325 mg tablet 1 tab PO Q6H PRN PRN (Reason: Pain) 3 Days Qty: 12 0RF ketorolac 10 mg tablet 10 mg PO Q8H PRN (Reason: pain) Qty: 15 0RF Rx Instructions: maximum total duration of 5 days from all oral, intranasal, or parenteral formulations No Action tramadol 50 mg tablet 50 mg PO BID PRN PRN (Reason: pain) tamsulosin 0.4 mg capsule 0.4 mg PO QHS Primary Care Provider: Yoan Ballard Referrals: Landry Nobles MD [Med Staff - Active Staff] - As Needed (as needed for prthopedics ) Yoan Ballard MD [Primary Care Provider] - Keep Bernabe appointment Print Language: [place] Disposition Disposition: Home, Self Care Discharge Date/Time: 02/06/25 11:00
--- NOTE | 2025-02-06 09:05 | RAD_ITS ---
PROCEDURE: KNEE 4 OR MORE VIEWS (RADKN), 02/06/2025 REASON FOR EXAM: PAIN AND SWELLING TECHNIQUE: AP, cross-table lateral, AP tunnel, and sunrise views of the RIGHT knee were obtained. COMPARISON: 06/30/2023 FINDINGS: Fracture/dislocation: None visible. Joint space(s): Mild medial compartment joint space loss without osteophytes. Soft tissues: Question a trace joint effusion, decreased from 06/30/2023. Foreign bodies: None visible. Bone mineralization: Unremarkable. Other: None. RAD/Knee 4 or More Views IMPRESSION: 1. No visible acute displaced fracture. 2. Question a trace joint effusion, decreased from 06/30/2023. 3. Additional description as above. Reading Location: [id number]
[2025-02-06 09:10] LABS: Erythrocyte Sedimentation Rate 22 mm/hr (0-20)
[2025-02-06 09:13] LABS: Absolute Neutrophil Count 9.6 X10^3/uL (2.0-7.7); Basophil# 0.05 X10^3/uL; Basophil% 0.4 % (0-1); Eosinophil# 0.16 X10^3/uL; Eosinophils% 1.3 % (0-5); Hematocrit 41.9 % (40-54); Hemoglobin 14.2 g/dL (13.0-16.5); Lymphocyte % 12.5 % (19-41); Mean Corp Hgb Conc 33.9 g/dL (32-36); Mean Corpuscular Volume 85.5 fL (80-94); Mean Platelet Vol. 9.5 fl (6.2-12.0); Monocyte# 0.63 X10^3/uL; Monocyte% 5.2 % (0-10); NRBC Flagged by Analyzer 0 % (0-5); Neutrophil # 9.57 X10^3/uL (2.7-7.7); Neutrophil % 79.6 % (47-70); Platelet Count 282 K/mm3 (150-450); RBC Distribution Width CV 13.4 % (11.6-14.6); RBC Distribution Width SD 41.9 fl (35.1-43.9)
[2025-02-06 09:35] LABS: Anion Gap 11 (5-15); BUN 20 mg/dL (4-19); BUN/Creat Ratio 20.5 RATIO (10-20); Calcium,Total 9.3 mg/dL (7.6-11.0); Carbon Dioxide 23.9 mmol/L (21.0-32.0); Chloride 102 mmol/L (98-108); Creatinine, Serum 0.97 mg/dL (0.70-1.20); EST Glomerular Filtration Rate 93 (>60); Estimated Creatinine Clearance 110.49 ml/min (50-250); Glucose 115 mg/dL (70-99); Potassium 4.6 mmol/L (3.3-5.1); Sodium Level 137 mmol/L (133-145)
[2025-02-06 09:50] VITALS: PULSE 71; RESP 15; O2SAT 96
[2025-02-06] MEDS: Ketorolac 30 MG/ML Syringe IV (10:19)
[2025-02-06 10:56] VITALS: BP 111/82; PULSE 71; RESP 15; TEMP 35.6; O2SAT 96
== END 2025-02-06 11:00 | disposition home or self-care (01) ==
PROVIDERS: Emergency Provider Emergency Medicine; PCP Family Medicine; Visit Provider Emergency Medicine
DX: M25.561 Pain in right knee (principal); M54.9 Dorsalgia, unspecified; M10.9 Gout, unspecified
CPT/HCPCS: 73564; 80048; 85025; 85652; 86140; 96374; 99283; A4216